=== PATIENT | female | born 1965 | race Caucasian/White ===

== ENCOUNTER → 2018-01-24 | Outpatient (CLI) | payer OTHER | END | disposition home or self-care (01) | LOC: KCIC MRI 12:16 | DX: S83.241D Other tear of medial meniscus, current injury, right knee, subsequent encounter (principal); M94.261 Chondromalacia, right knee; X58.XXXD Exposure to other specified factors, subsequent encounter | CPT/HCPCS: 73721 ==

== ENCOUNTER 2021-12-07 10:36 | Inpatient (IN) | payer OTHER ==
[~2021-12-07] VITALS: Ht 170.2 cm; Wt 107.0 kg
[~2021-12-07 10:36] MED LIST: ALPR0.5T PO; FLUT1DIS3 IH; FURO-68 PO; HYDR-2761 PO; POTA10TA12 PO; TIOT18CA IH; VENL150C PO
[2021-12-07 10:38] VITALS: BP 119/83
[2021-12-07] MEDS ORDERED: BUDE10.26 PO (11:13)
[2021-12-07 12:38] LABS: BASE EXCESS ABG 8 mmol/L (-3-3); HCO3 ABG 39 mmol/L (21-28); PO2 ABG 88 mmHg (75-108); SAT O2 ABG 96 % (92-99)
[2021-12-07 12:40] LABS: PCO2 ABG 85 mmHg (35-46)
[2021-12-07] MEDS ORDERED: guaiFENesin/CODEINE 100mg/10mg 5 ML LIQUID PO PRN (13:00)
--- NOTE | 2021-12-07 13:26 | HP ---
DATE OF SERVICE: 12/07/2021 ADMIT DATE: 12/07/2021 CHIEF COMPLAINT: Respiratory failure. HISTORY OF PRESENT ILLNESS: The patient is a pleasant 56-year-old female who smokes too much. She presented to [facility] with respiratory failure. Her CO2 level was quite high. They put her on BiPAP and then she somehow left AMA. She went back to the hospital a few hours later after she smoked some more. Now, she has been transferred to our facility where we put her back on BiPAP. She is threatening to leave against medical advice again. PAST MEDICAL HISTORY: Severe tobacco abuse, she was just smoking this morning, chronic pain, depression, anxiety. ALLERGIES: SULFA, CEPHALEXIN, PENICILLIN, AND PROMETHAZINE. FAMILY HISTORY: COPD. SOCIAL HISTORY: She smokes 2 packs a day. No drink or drugs. MEDICATIONS: Reviewed. She is on Spiriva, hydrocodone, Effexor, Xanax, budesonide, and Advair. REVIEW OF SYSTEMS: GENERAL: No history of weight change, weakness or fevers. SKIN: No bruising, hair changes or rashes. EYES: No blurred, double or loss of vision. NOSE AND THROAT: No history of nosebleeds, hoarseness or sore throat. HEART: No history of palpitations, chest pain or shortness of breath on exertion. LUNGS: She complains of severe shortness of breath and cough. GASTROINTESTINAL: Denies changes in appetite, nausea, vomiting, diarrhea or constipation. GENITOURINARY: No history of frequency, urgency, hesitancy or nocturia. NEUROLOGIC: Denies history of numbness, tingling, tremor or weakness. PSYCHIATRIC: No history of panic, anxiety or depression. ENDOCRINE: No history of heat or cold intolerance, polyuria or polydipsia. EXTREMITIES: Denies muscle weakness, joint pain, pain on walking or stiffness. PHYSICAL EXAMINATION: VITALS: Within normal limits and are stable. GENERAL: No apparent distress. Alert and oriented. HEENT: We just put the BiPAP mask on her. MUSCULOSKELETAL: Well developed, well nourished, good range of motion. ENDOCRINE: No thyromegaly was palpated. LYMPHATICS: No cervical chain or axillary nodes were noted. HEMATOPOIETIC: No bruising. NECK: Supple, no JVD, no thyromegaly was noted. LUNGS: She has bibasilar crackles and decreased breath sounds. HEART: RRR, S1, S2 present. Peripheral pulses intact, no obvious murmurs were noted. ABDOMEN: Soft, nontender. Positive bowel sounds, no organomegaly, normal bowel sounds. EXTREMITIES: Without any cyanosis, clubbing, or edema. Pedal pulses intact, Homans sign is negative. NEUROLOGIC: She is very weak. PSYCHIATRIC: She is anxious and depressed. SKIN: No ulcerations or rashes, good skin turgor, no jaundice. VASCULAR: Good capillary refill, neurovascular bundle appears to be intact. LABORATORY DATA: Pending other than an ABG, which we just got which shows a pH of 7.28, pCO2 85, pO2 88 with bicarbonate of 39, O2 sat of 96%, that was on 50% on the BiPAP. ASSESSMENT AND PLAN: Fulminant respiratory failure, suspect end-stage chronic obstructive pulmonary disease. We will give her empiric IV antibiotics, IV steroids, DuoNebs, BiPAP, home meds. Deep venous thrombosis prophylaxis. Full code. Consult Pulmonary. Prognosis extremely guarded at best. I told her to quit smoking. YELITZA/HARDY DR: YELITZA/lissett TID: [id number]
[2021-12-07] MEDS: HYDROcodone/APAP 5/325MG 1 TAB TABLET PO SCH ×2 (14:00→20:39)
[2021-12-07 14:18] LABS: ALBUMIN/GLOBULIN RATIO 0.7 (1.0-1.7); CALCIUM 8.6 mg/dL (8.5-10.1); CREATININE 0.6 mg/dL (0.6-1.0); GFR 102.7; POTASSIUM 3.8 mmol/L (3.5-5.1); TOTAL BILIRUBIN 0.3 mg/dL (0.2-1.0); TOTAL PROTEIN 7.1 g/dL (6.4-8.2)
[2021-12-07] MEDS: ALPRAZolam 0.5 MG TABLET PO SCH ×2 (14:30→20:38)
[2021-12-07] MEDS: methylPREDNISolone SOD SUCC PF 40 MG/ML VIAL. IV SCH ×2 (14:30→20:39)
[2021-12-07] MEDS: VENLAFAXINE 50 MG TABLET. PO SCH ×2 (14:30→20:39)
[2021-12-07 15:00] VITALS: BP 152/85
[2021-12-07] MEDS: IPRATRPIUM/ALBUTEROL 0.5/2.5MG 3 ML NEBU. NEB SCH ×2 (15:23→21:30)
[2021-12-07] MEDS ORDERED: IPRATRPIUM/ALBUTEROL 0.5/2.5MG 3 ML NEBU. NEB SCH (16:00)
[2021-12-07 19:00] VITALS: BP 146/88
[2021-12-07] MEDS: LACTOBACILLUS RHAMNOSUS GG 1 CAPSULE. PO SCH (20:39)
[2021-12-07] MEDS ORDERED: NON FORMULARY ITEM (Fluticasone/Salmeterol (Advair 250-50 Diskus) 1 PUFF) IH SCH (21:00)
[2021-12-07] MEDS ORDERED: FORMOTEROL FUMARATE PO SCH (21:00)
[2021-12-07] MEDS ORDERED: BUDESONIDE PO SCH (21:00)
[2021-12-07] MEDS ORDERED: [UNRECOGNIZED DRUG - OTHER] PO SCH (21:00)
[2021-12-07] MEDS: BUDESONIDE 0.5 MG/2 ML NEBU. NEB SCH (21:30)
[2021-12-07 22:13] VITALS: BP 121/68
[2021-12-08 02:24] VITALS: BP 143/92
[2021-12-08 05:35] LABS: CALCIUM 8.8 mg/dL (8.5-10.1); CREATININE 0.6 mg/dL (0.6-1.0); GFR 102.7; POTASSIUM 4.5 mmol/L (3.5-5.1)
[2021-12-08 07:00] VITALS: BP 143/68
[2021-12-08] MEDS: IPRATRPIUM/ALBUTEROL 0.5/2.5MG 3 ML NEBU. NEB SCH ×4 (07:26→20:04)
[2021-12-08] MEDS: BUDESONIDE 0.5 MG/2 ML NEBU. NEB SCH ×2 (07:26→20:04)
[2021-12-08] MEDS: VENLAFAXINE 50 MG TABLET. PO SCH ×3 (07:41→20:14)
[2021-12-08] MEDS: ALPRAZolam 0.5 MG TABLET PO SCH ×2 (07:41→14:00)
[2021-12-08] MEDS: HYDROcodone/APAP 5/325MG 1 TAB TABLET PO SCH ×2 (07:41→14:00)
[2021-12-08] MEDS: LACTOBACILLUS RHAMNOSUS GG 1 CAPSULE. PO SCH ×2 (07:41→20:14)
[2021-12-08] MEDS: methylPREDNISolone SOD SUCC PF 40 MG/ML VIAL. IV SCH ×2 (07:42→20:14)
[2021-12-08] MEDS ORDERED: NON FORMULARY ITEM (Tiotropium Bromide (Spiriva) 1 CAP) IH SCH (09:00)
[2021-12-08 10:25] VITALS: BP 135/60
--- NOTE | 2021-12-08 10:33 | CONS ---
DATE OF CONSULTATION: 12/08/2021 PULMONARY CONSULTATION ATTENDING PHYSICIAN: Wyatt Garibay DO REASON FOR CONSULTATION: Respiratory failure. HISTORY OF PRESENT ILLNESS: The patient is a 56-year-old morbidly obese female with a BMI of 37.6. She has 40 years of tobacco use. She came into the hospital with cough and shortness of breath. She states she had COVID in last week of October. She is not vaccinated with COVID. She continues to smoke 1 pack per day. She also had generalized leg edema and swelling of her body. The patient was seen in the Emergency Room and hospitalized for further evaluation. She is not on home oxygen. ABGs initially showed a pH of 7.28, pCO2 of 85 and a pO2 of 88 with a bicarbonate 39 on 50% BiPAP. She is currently off the BiPAP and currently on nasal cannula. I have been asked to see her for further evaluation. No nausea, vomiting, no diarrhea, no dysuria. PAST MEDICAL HISTORY: Suspect severe COPD. A pack a day for 40 years and still smokes cigarettes. History of chronic pain, depression, anxiety. PAST SURGICAL HISTORY: No recent surgery. ALLERGIES: SULFA, CEPHALEXIN, PENICILLIN, AND PROMETHAZINE. FAMILY HISTORY: COPD. SOCIAL HISTORY: Smokes 1 pack a day and is doing it for 40 years. MEDICATIONS: All reviewed as listed in the MRAD including DuoNebs, Solu-Medrol and Levaquin. REVIEW OF SYSTEMS: Twelve-point review of system obtained. Pertinent positives discussed in my present illness, otherwise noncontributory. All systems that were negative were reviewed as well. PHYSICAL EXAMINATION: VITAL SIGNS: Reviewed. Pulse ox 94% on 4 liters. Blood pressure is stable. Afebrile. NECK: Supple. LUNGS: With diminished breath sounds. No wheezing. CARDIOVASCULAR: With a regular rate. ABDOMEN: Soft, nontender, obese. EXTREMITIES: With 1+ pitting edema. LABORATORY DATA: Labs are reviewed. ABGs discussed in my history of present illness. BUN 11, creatinine 0.6. Bicarbonate is 45. IMPRESSION: 1. Acute on chronic hypoxic and hypercapnic respiratory failure secondary to multifactorial etiologies including a combination of acute exacerbation of chronic obstructive pulmonary disease, acute bronchitis and acute on chronic cor pulmonale. 2. Underlying suspected severe chronic obstructive pulmonary disease with chronic hypercapnia. In addition, she likely has component of obesity hypoventilation syndrome. 3. COVID-19 infection in October of this year. Recovered. Not on home oxygen. Some of the x-ray abnormalities could be from residual COVID pneumonia. 4. Underlying morbid obesity. RECOMMENDATIONS: 1. The patient is off the BiPAP. Clinically, doing better. 2. We will follow on her ABGs. 3. Smoking cessation counseling provided. 4. Continue DuoNebs. 5. Continue empiric antibiotic. 6. IV Solu-Medrol with gradual taper. 7. Continue Pulmicort. 8. Weight loss is strongly emphasized. 9. We will discuss with RN. We will follow along with you. Could be discharged in the next 24 hours. Give IV Lasix. ANA PAULA DR: Rangel TID: [id number] [facility] [place] [facility]
[2021-12-08] MEDS ORDERED: FUROSEMIDE 40 MG/4 ML VIAL. IVP ONE (11:00)
--- NOTE | 2021-12-08 11:28 | PDOC ---
[employer] PROGRESS NOTE Date of Service DOS: DATE: 12/08/21 TIME: 11:24 Chief Complaint Chief Complaint ContinuedRespiratory failure End-stage COPD Continued tobacco abuse although she states she quit yesterday Chronic pain Depression Anxiety History of Present Illness History of Present Illness 12/08/2021 Patient seen and examined She is lying on her left side resting with no apparent distress Refuses to wear BiPAP and refused the ABG by RT Called the RT a B____h ! Vitals/I&O Vitals/I&O: Vital Signs Date Time Temp Pulse Resp B/P (MAP) Pulse Ox O2 Delivery O2 Flow Rate FiO2 12/08/21 10:25 97.1 100 20 135/60 (85) 96 Nasal Cannula 4.0 97.1 I & O 12/07/21 12/07/21 12/08/21 15:00 23:00 07:00 Intake Total 0 ml 100 ml Output Total 250 ml Balance 0 ml 100 ml -250 ml Physical Exam General: No acute distress Heart: Regular rate Lungs: Crackles Abdomen: Normal bowel sounds Extremities: No clubbing Skin: No rashes Labs Labs: Laboratory Tests Test 12/07/21 12:40 12/07/21 13:40 12/08/21 04:15 O2 Saturation 96 % (92-99) Arterial Blood pH 7.28 (7.35-7.45) Arterial Blood pCO2 at Patient Temp 85 mmHg (35-46) Arterial Blood pO2 at Patient Temp 88 mmHg (75-108) Arterial Blood HCO3 39 mmol/L (21-28) Arterial Blood Base Excess 8 mmol/L (-3-3) FiO2 50% bipap Sodium Level 143 mmol/L (136-145) 145 mmol/L (136-145) Potassium Level 3.8 mmol/L (3.5-5.1) 4.5 mmol/L (3.5-5.1) Chloride Level 98 mmol/L (98-107) 98 mmol/L (98-107) Carbon Dioxide Level 40 mmol/L (21-32) 45 mmol/L (21-32) Anion Gap 5 (6-14) 2 (6-14) Blood Urea Nitrogen 7 mg/dL (7-20) 11 mg/dL (7-20) Creatinine 0.6 mg/dL (0.6-1.0) 0.6 mg/dL (0.6-1.0) Estimated GFR (Cockcroft-Gault) 102.7 102.7 BUN/Creatinine Ratio 12 (6-20) Glucose Level 122 mg/dL (70-99) 105 mg/dL (70-99) Calcium Level 8.6 mg/dL (8.5-10.1) 8.8 mg/dL (8.5-10.1) Total Bilirubin 0.3 mg/dL (0.2-1.0) Aspartate Amino Transf (AST/SGOT) 19 U/L (15-37) Alanine Aminotransferase (ALT/SGPT) 23 U/L (14-59) Alkaline Phosphatase 71 U/L (46-116) Total Protein 7.1 g/dL (6.4-8.2) Albumin 3.0 g/dL (3.4-5.0) Albumin/Globulin Ratio 0.7 (1.0-1.7) Assessment and Plan Assessmemt and Plan ContinuedRespiratory failure End-stage COPD Continued tobacco abuse although she states she quit yesterday Chronic pain Depression Anxiety Plan Continue steroids As needed BiPAP Trend ABGs Home meds DVT prophylaxis Full code She probably needs hospice? Comment Review of Relevant I have reviewed the following items eliane (where applicable) has been applied. Medications: Current Medications Medications (Trade) Dose Ordered Sig/Lobito Route PRN Reason Start Time Stop Time Status Last Admin Dose Admin Methylprednisolone Sodium Succinate (SOLU-Medrol 40MG VIAL) 40 mg BID IV 12/07/21 14:00 12/08/21 07:42 Levofloxacin/ Dextrose 100 ml @ 100 mls/hr Q24H IV 12/07/21 13:00 12/07/21 14:28 Albuterol/ Ipratropium (Duoneb) 3 ml RTQID NEB 12/07/21 16:00 12/08/21 07:26 Alprazolam (Xanax) 0.5 mg TID PO 12/07/21 14:00 12/08/21 07:41 Acetaminophen/ Hydrocodone Bitart (Lortab 5/325) 1 tab TID PO 12/07/21 14:00 12/08/21 07:41 Venlafaxine HCl (Effexor) 100 mg TID PO 12/07/21 14:00 12/08/21 07:41 Budesonide (Pulmicort) 0.5 mg RTBID NEB 12/07/21 20:00 12/08/21 07:26 Lactobacillus Rhamnosus (Culturelle) 1 cap BID PO 12/07/21 21:00 12/08/21 07:41 Justifications for Admission Other Justification TOBI RODRIGUEZ III DO Dec 08, 2021 11:28
[2021-12-08] MEDS ORDERED: HYDROcodone/APAP 5/325MG 1 TAB TABLET PO PRN (14:15)
--- NOTE | 2021-12-08 14:38 | NUR ---
SS following for discharge planning. SS reviewed pt chart and discussed with pt RN. Pt is from home and is currently requiring oxygen at four liters nasal canula. Pt has no home oxygen. Pulmonology following. Pt on IV Solu-Medrol and IV Levaquin. SS will continue to follow for discharge planning.
[2021-12-08] MEDS ORDERED: NICOTINE 21MG PATCH. TD PRN (14:45)
[2021-12-08 14:57] VITALS: BP 146/89
[2021-12-08] MEDS: NICOTINE 21MG PATCH. TD SCH (15:00)
[2021-12-08 19:24] VITALS: BP 136/82
[2021-12-08] MEDS: ENOXAPARIN 40 MG/0.4 ML SYRINGE. SQ SCH (20:14)
[2021-12-08] MEDS: ALPRAZolam 0.5 MG TABLET PO PRN (20:15)
[2021-12-08 22:41] VITALS: BP 162/86
[2021-12-09] VITALS (7 sets, daily range): BP systolic 141–184; BP diastolic 74–92
[2021-12-09 05:11] LABS: BASO % 0 % (0-3); EOS % 0 % (0-3); HEMATOCRIT 43.1 % (36.0-47.0); HEMOGLOBIN 13.9 g/dL (12.0-15.5); LYMPH # 0.8 x10^3/uL (1.0-4.8); LYMPH % 12 % (24-48); MEAN CORPUSCULAR HEMOGLOBIN 30 pg (25-35); MEAN CORPUSCULAR HGB CONC 32 g/dL (31-37); MEAN CORPUSCULAR VOLUME 93 fL (79-100); MONO # 0.3 x10^3/uL (0.0-1.1); MONO % 5 % (0-9); NEUT # 5.3 x10^3/uL (1.8-7.7); NEUT % 83 % (31-73); PLATELET COUNT 236 x10^3/uL (140-400); RED BLOOD COUNT 4.64 x10^6/uL (3.50-5.40); WHITE BLOOD COUNT 6.4 x10^3/uL (4.0-11.0)
[2021-12-09 05:30] LABS: BLOOD UREA NITROGEN 19 mg/dL (7-20); CALCIUM 8.9 mg/dL (8.5-10.1); CHLORIDE 96 mmol/L (98-107); CREATININE 0.7 mg/dL (0.6-1.0); GFR 85.9; GLUCOSE 116 mg/dL (70-99); POTASSIUM 4.3 mmol/L (3.5-5.1); SODIUM 145 mmol/L (136-145)
[2021-12-09 05:41] LABS: CARBON DIOXIDE > 45 mmol/L (21-32)
[2021-12-09] MEDS: VENLAFAXINE 50 MG TABLET. PO SCH ×3 (08:08→20:51)
[2021-12-09] MEDS: methylPREDNISolone SOD SUCC PF 40 MG/ML VIAL. IV SCH ×2 (08:08→20:51)
[2021-12-09] MEDS: LACTOBACILLUS RHAMNOSUS GG 1 CAPSULE. PO SCH ×2 (08:08→20:52)
[2021-12-09] MEDS: NICOTINE 21MG PATCH. TD SCH (08:08)
[2021-12-09] MEDS: IPRATRPIUM/ALBUTEROL 0.5/2.5MG 3 ML NEBU. NEB SCH ×4 (08:38→21:00)
[2021-12-09] MEDS: BUDESONIDE 0.5 MG/2 ML NEBU. NEB SCH ×2 (08:38→21:00)
--- NOTE | 2021-12-09 10:42 | PDOC ---
[employer] PROGRESS NOTE Date of Service DOS: DATE: 12/09/21 TIME: 10:41 Chief Complaint Chief Complaint ContinuedRespiratory failure End-stage COPD Continued tobacco abuse although she states she quit yesterday Chronic pain Depression Anxiety History of Present Illness History of Present Illness 12/09/2021 Patient up in the shower Discussed with RN Discussed with case management Chart reviewed 12/08/2021 Patient seen and examined She is lying on her left side resting with no apparent distress Refuses to wear BiPAP and refused the ABG by RT Called the RT a B____h ! Vitals/I&O Vitals/I&O: Vital Signs Date Time Temp Pulse Resp B/P (MAP) Pulse Ox O2 Delivery O2 Flow Rate FiO2 12/09/21 10:32 22 98 Nasal Cannula 12/09/21 10:24 98.0 97 168/81 (110) 4.0 98.0 I & O 12/08/21 12/08/21 12/09/21 15:00 23:00 07:00 Intake Total 510 ml 510 ml 360 ml Output Total 2450 ml Balance 510 ml -1940 ml 360 ml Physical Exam General: No acute distress Heart: Regular rate Lungs: Crackles Abdomen: Normal bowel sounds Extremities: No clubbing Skin: No rashes Labs Labs: Laboratory Tests Test 12/09/21 04:15 White Blood Count 6.4 x10^3/uL (4.0-11.0) Red Blood Count 4.64 x10^6/uL (3.50-5.40) Hemoglobin 13.9 g/dL (12.0-15.5) Hematocrit 43.1 % (36.0-47.0) Mean Corpuscular Volume 93 fL (79-100) Mean Corpuscular Hemoglobin 30 pg (25-35) Mean Corpuscular Hemoglobin Concent 32 g/dL (31-37) Red Cell Distribution Width 17.0 % (11.5-14.5) Platelet Count 236 x10^3/uL (140-400) Neutrophils (%) (Auto) 83 % (31-73) Lymphocytes (%) (Auto) 12 % (24-48) Monocytes (%) (Auto) 5 % (0-9) Eosinophils (%) (Auto) 0 % (0-3) Basophils (%) (Auto) 0 % (0-3) Neutrophils # (Auto) 5.3 x10^3/uL (1.8-7.7) Lymphocytes # (Auto) 0.8 x10^3/uL (1.0-4.8) Monocytes # (Auto) 0.3 x10^3/uL (0.0-1.1) Eosinophils # (Auto) 0.0 x10^3/uL (0.0-0.7) Basophils # (Auto) 0.0 x10^3/uL (0.0-0.2) Sodium Level 145 mmol/L (136-145) Potassium Level 4.3 mmol/L (3.5-5.1) Chloride Level 96 mmol/L (98-107) Carbon Dioxide Level > 45 mmol/L (21-32) Anion Gap (6-14) Blood Urea Nitrogen 19 mg/dL (7-20) Creatinine 0.7 mg/dL (0.6-1.0) Estimated GFR (Cockcroft-Gault) 85.9 Glucose Level 116 mg/dL (70-99) Calcium Level 8.9 mg/dL (8.5-10.1) Assessment and Plan Assessmemt and Plan ContinuedRespiratory failure End-stage COPD Continued tobacco abuse although she states she quit yesterday Chronic pain Depression Anxiety Plan Continue IV steroids As needed BiPAP Continue IV antibiotic Trend ABGs Home meds DVT prophylaxis Full code We will hope to change to p.o. steroids and p.o. antibiotics tomorrow morning and discharge then Comment Review of Relevant I have reviewed the following items eliane (where applicable) has been applied. Medications: Current Medications Medications (Trade) Dose Ordered Sig/Lobito Route PRN Reason Start Time Stop Time Status Last Admin Dose Admin Furosemide (Lasix) 40 mg 1X ONCE IVP 12/08/21 11:00 12/08/21 11:01 DC 12/08/21 11:40 Alprazolam (Xanax) 0.5 mg PRN TID PRN PO ANXIETY / AGITATION 12/08/21 14:15 12/08/21 20:15 Acetaminophen/ Hydrocodone Bitart (Lortab 5/325) 1 tab PRN TID PRN PO PAIN 12/08/21 14:15 12/09/21 10:02 Enoxaparin Sodium (Lovenox 40mg Syringe) 40 mg Q24H SQ 12/08/21 21:00 12/08/21 20:14 Justifications for Admission Other Justification TOBI RODRIGUEZ III DO Dec 09, 2021 10:42
--- NOTE | 2021-12-09 11:00 | PDOC ---
PULMONARY PROGRESS NOTES DATE: 12/09/21 TIME: 10:57 Subjective Patient feels better. Remains on nasal cannula. Used BiPAP last night. Vitals Vital Signs Date Time Temp Pulse Resp B/P (MAP) Pulse Ox O2 Delivery O2 Flow Rate FiO2 12/09/21 10:32 22 98 Nasal Cannula 12/09/21 10:24 98.0 97 168/81 (110) 4.0 98.0 General: Alert, No acute distress Lungs: Clear Cardiovascular: S1 Abdomen: Soft Neuro Exam: Alert Extremities: Other (1+ pitting edema bilaterally) Labs Laboratory Tests Test 12/07/21 12:40 12/07/21 13:40 12/08/21 04:15 12/09/21 04:15 O2 Saturation 96 % (92-99) Arterial Blood pH 7.28 (7.35-7.45) Arterial Blood pCO2 at Patient Temp 85 mmHg (35-46) Arterial Blood pO2 at Patient Temp 88 mmHg (75-108) Arterial Blood HCO3 39 mmol/L (21-28) Arterial Blood Base Excess 8 mmol/L (-3-3) FiO2 50% bipap Sodium Level 143 mmol/L (136-145) 145 mmol/L (136-145) 145 mmol/L (136-145) Potassium Level 3.8 mmol/L (3.5-5.1) 4.5 mmol/L (3.5-5.1) 4.3 mmol/L (3.5-5.1) Chloride Level 98 mmol/L (98-107) 98 mmol/L (98-107) 96 mmol/L (98-107) Carbon Dioxide Level 40 mmol/L (21-32) 45 mmol/L (21-32) > 45 mmol/L (21-32) Anion Gap 5 (6-14) 2 (6-14) (6-14) Blood Urea Nitrogen 7 mg/dL (7-20) 11 mg/dL (7-20) 19 mg/dL (7-20) Creatinine 0.6 mg/dL (0.6-1.0) 0.6 mg/dL (0.6-1.0) 0.7 mg/dL (0.6-1.0) Estimated GFR (Cockcroft-Gault) 102.7 102.7 85.9 BUN/Creatinine Ratio 12 (6-20) Glucose Level 122 mg/dL (70-99) 105 mg/dL (70-99) 116 mg/dL (70-99) Calcium Level 8.6 mg/dL (8.5-10.1) 8.8 mg/dL (8.5-10.1) 8.9 mg/dL (8.5-10.1) Total Bilirubin 0.3 mg/dL (0.2-1.0) Aspartate Amino Transf (AST/SGOT) 19 U/L (15-37) Alanine Aminotransferase (ALT/SGPT) 23 U/L (14-59) Alkaline Phosphatase 71 U/L (46-116) Total Protein 7.1 g/dL (6.4-8.2) Albumin 3.0 g/dL (3.4-5.0) Albumin/Globulin Ratio 0.7 (1.0-1.7) White Blood Count 6.4 x10^3/uL (4.0-11.0) Red Blood Count 4.64 x10^6/uL (3.50-5.40) Hemoglobin 13.9 g/dL (12.0-15.5) Hematocrit 43.1 % (36.0-47.0) Mean Corpuscular Volume 93 fL (79-100) Mean Corpuscular Hemoglobin 30 pg (25-35) Mean Corpuscular Hemoglobin Concent 32 g/dL (31-37) Red Cell Distribution Width 17.0 % (11.5-14.5) Platelet Count 236 x10^3/uL (140-400) Neutrophils (%) (Auto) 83 % (31-73) Lymphocytes (%) (Auto) 12 % (24-48) Monocytes (%) (Auto) 5 % (0-9) Eosinophils (%) (Auto) 0 % (0-3) Basophils (%) (Auto) 0 % (0-3) Neutrophils # (Auto) 5.3 x10^3/uL (1.8-7.7) Lymphocytes # (Auto) 0.8 x10^3/uL (1.0-4.8) Monocytes # (Auto) 0.3 x10^3/uL (0.0-1.1) Eosinophils # (Auto) 0.0 x10^3/uL (0.0-0.7) Basophils # (Auto) 0.0 x10^3/uL (0.0-0.2) Laboratory Tests Test 12/09/21 04:15 White Blood Count 6.4 x10^3/uL (4.0-11.0) Red Blood Count 4.64 x10^6/uL (3.50-5.40) Hemoglobin 13.9 g/dL (12.0-15.5) Hematocrit 43.1 % (36.0-47.0) Mean Corpuscular Volume 93 fL (79-100) Mean Corpuscular Hemoglobin 30 pg (25-35) Mean Corpuscular Hemoglobin Concent 32 g/dL (31-37) Red Cell Distribution Width 17.0 % (11.5-14.5) Platelet Count 236 x10^3/uL (140-400) Neutrophils (%) (Auto) 83 % (31-73) Lymphocytes (%) (Auto) 12 % (24-48) Monocytes (%) (Auto) 5 % (0-9) Eosinophils (%) (Auto) 0 % (0-3) Basophils (%) (Auto) 0 % (0-3) Neutrophils # (Auto) 5.3 x10^3/uL (1.8-7.7) Lymphocytes # (Auto) 0.8 x10^3/uL (1.0-4.8) Monocytes # (Auto) 0.3 x10^3/uL (0.0-1.1) Eosinophils # (Auto) 0.0 x10^3/uL (0.0-0.7) Basophils # (Auto) 0.0 x10^3/uL (0.0-0.2) Sodium Level 145 mmol/L (136-145) Potassium Level 4.3 mmol/L (3.5-5.1) Chloride Level 96 mmol/L (98-107) Carbon Dioxide Level > 45 mmol/L (21-32) Anion Gap (6-14) Blood Urea Nitrogen 19 mg/dL (7-20) Creatinine 0.7 mg/dL (0.6-1.0) Estimated GFR (Cockcroft-Gault) 85.9 Glucose Level 116 mg/dL (70-99) Calcium Level 8.9 mg/dL (8.5-10.1) Medications Active Scripts Medications Dose Route/Sig Max Daily Dose Days Date Category Budesonide-Formoterol 160-4.5 (Budesonide/Formoterol Fumarate) 10.2 Gm Hfa.aer.ad 2 Puff PO BID 12/07/21 Reported Effexor Xr (Venlafaxine Hcl) 150 Mg Cap.er.24h 300 Mg PO DAILY 05/31/15 Reported Hydrocodone-Apap 5-325 (Hydrocodone Bit/Acetaminophen) 1 Each Tablet 1 Tab PO TID PRN PRN 05/31/15 Reported Xanax (Alprazolam) 0.5 Mg Tablet 1 Tab PO TID PRN PRN 05/31/15 Reported Advair 250-50 Diskus (Fluticasone/Salmeterol) 1 Each Disk.w.dev 1 Puff IH BID 05/31/15 Reported Spiriva (Tiotropium Eitzen) 18 Mcg Cap.w.dev 1 Cap IH DAILY 05/31/15 Reported Impression . 1. Acute on chronic hypoxic and hypercapnic respiratory failure secondary to multifactorial etiologies including a combination of acute exacerbation of chronic obstructive pulmonary disease, acute bronchitis and acute on chronic cor pulmonale. 2. Underlying suspected severe chronic obstructive pulmonary disease with chronic hypercapnia. In addition, she likely has component of obesity hypoventilation syndrome. 3. COVID-19 infection in October of this year. Recovered. Not on home oxygen. Some of the x-ray abnormalities could be from residual COVID pneumonia. 4. Underlying morbid obesity. Plan . 1. The patient is off the BiPAP. Clinically, doing better. 2. We will follow on her ABGs today. 3. Smoking cessation counseling provided. 4. Continue DuoNebs. 5. Continue empiric antibiotic. 6. IV Solu-Medrol with gradual taper. 7. Continue Pulmicort. 8. Weight loss is strongly emphasized. 9. Diuresis. Likely discharge in the next 24 hours. LEE CASTRO MD Dec 09, 2021 11:00
[2021-12-09] MEDS ORDERED: FUROSEMIDE 40 MG/4 ML VIAL. IVP ONE (11:15)
[2021-12-09 11:23] LABS: BASE EXCESS ABG 15 mmol/L (-3-3); HCO3 ABG 44 mmol/L (21-28); PO2 ABG 61 mmHg (75-108); SAT O2 ABG 90 % (92-99)
[2021-12-09 11:29] LABS: PCO2 ABG 74 mmHg (35-46)
--- NOTE | 2021-12-09 13:04 | NUR ---
SS following up with discharge planning. SS reviewed pt chart and discussed with pt RN. Pt is currently requiring oxygen at three to four liters nasal canula. Pt has no home oxygen. Pulmonology following. Pt on IV Solu-Medrol and IV Levaquin. Probable need for six minute walk prior to discharge. SS will continue to follow for discharge planning.
[2021-12-09] MEDS: ENOXAPARIN 40 MG/0.4 ML SYRINGE. SQ SCH (20:51)
[2021-12-09] MEDS: ALPRAZolam 0.5 MG TABLET PO PRN (20:52)
--- NOTE | 2021-12-09 22:04 | NUR ---
PT ON BIPAP FOR ONLY AN HOUR. SAID SHE CANT DO IT, WILL ASK AGAIN LATER. LCR
--- NOTE | 2021-12-10 00:36 | NUR ---
PT ADAMANTLY REFUSING TO WEAR BIPAP. STATES THAT THE MASK MERLOS.
--- NOTE | 2021-12-10 01:00 | NUR ---
pt wore bipap x 1 hour. states it lopez her nose and drys out her mouth. lcrn
[2021-12-10 02:24] VITALS: BP 137/92
[2021-12-10 03:26] LABS: BASO % 0 % (0-3); EOS % 0 % (0-3); HEMOGLOBIN 14.3 g/dL (12.0-15.5); LYMPH # 0.6 x10^3/uL (1.0-4.8); LYMPH % 11 % (24-48); MEAN CORPUSCULAR HEMOGLOBIN 30 pg (25-35); MEAN CORPUSCULAR HGB CONC 33 g/dL (31-37); MEAN CORPUSCULAR VOLUME 92 fL (79-100); MONO # 0.2 x10^3/uL (0.0-1.1); MONO % 4 % (0-9); NEUT # 4.2 x10^3/uL (1.8-7.7); NEUT % 85 % (31-73); PLATELET COUNT 221 x10^3/uL (140-400); RED BLOOD COUNT 4.77 x10^6/uL (3.50-5.40); RED CELL DISTRIBUTION WIDTH 17.8 % (11.5-14.5); WHITE BLOOD COUNT 4.9 x10^3/uL (4.0-11.0)
[2021-12-10 03:48] LABS: BLOOD UREA NITROGEN 19 mg/dL (7-20); CALCIUM 9.2 mg/dL (8.5-10.1); CHLORIDE 97 mmol/L (98-107); CREATININE 0.8 mg/dL (0.6-1.0); GFR 73.7; GLUCOSE 136 mg/dL (70-99); POTASSIUM 4.8 mmol/L (3.5-5.1); SODIUM 144 mmol/L (136-145)
[2021-12-10 03:49] LABS: CARBON DIOXIDE > 45 mmol/L (21-32)
[2021-12-10 07:00] VITALS: BP 154/77
[2021-12-10] MEDS: IPRATRPIUM/ALBUTEROL 0.5/2.5MG 3 ML NEBU. NEB SCH ×2 (07:41→11:23)
[2021-12-10] MEDS: BUDESONIDE 0.5 MG/2 ML NEBU. NEB SCH (07:41)
--- NOTE | 2021-12-10 08:32 | PDOC ---
[employer] PROGRESS NOTE Date of Service DOS: DATE: 12/10/21 TIME: 08:30 Chief Complaint Chief Complaint ContinuedRespiratory failure End-stage COPD Continued tobacco abuse although she states she quit yesterday Chronic pain Depression Anxiety History of Present Illness History of Present Illness 12/10/2021 Patient seen and examined She seems to have made a remarkable recovery She is sitting up smiling talking eating able to walk to the bathroom States she is done smoking cigarettes Wants to go home We will discharge on p.o. steroids antibiotics oxygen beta agonist 12/09/2021 Patient up in the shower Discussed with RN Discussed with case management Chart reviewed 12/08/2021 Patient seen and examined She is lying on her left side resting with no apparent distress Refuses to wear BiPAP and refused the ABG by RT Called the RT a B____h ! Vitals/I&O Vitals/I&O: Vital Signs Date Time Temp Pulse Resp B/P (MAP) Pulse Ox O2 Delivery O2 Flow Rate FiO2 12/10/21 07:43 95 Nasal Cannula 3.0 12/10/21 07:00 97.7 86 19 154/77 (102) 97.7 I & O 12/09/21 12/09/21 12/10/21 15:00 23:00 07:00 Intake Total 680 ml 440 ml 1200 ml Output Total 2000 ml 1200 ml 1600 ml Balance -1320 ml -760 ml -400 ml Physical Exam General: Alert, Oriented X3, Cooperative, No acute distress Heart: Regular rate Lungs: Clear Abdomen: Normal bowel sounds Extremities: No clubbing Skin: No rashes Labs Labs: Laboratory Tests Test 12/10/21 02:40 White Blood Count 4.9 x10^3/uL (4.0-11.0) Red Blood Count 4.77 x10^6/uL (3.50-5.40) Hemoglobin 14.3 g/dL (12.0-15.5) Hematocrit 44.0 % (36.0-47.0) Mean Corpuscular Volume 92 fL (79-100) Mean Corpuscular Hemoglobin 30 pg (25-35) Mean Corpuscular Hemoglobin Concent 33 g/dL (31-37) Red Cell Distribution Width 17.8 % (11.5-14.5) Platelet Count 221 x10^3/uL (140-400) Neutrophils (%) (Auto) 85 % (31-73) Lymphocytes (%) (Auto) 11 % (24-48) Monocytes (%) (Auto) 4 % (0-9) Eosinophils (%) (Auto) 0 % (0-3) Basophils (%) (Auto) 0 % (0-3) Neutrophils # (Auto) 4.2 x10^3/uL (1.8-7.7) Lymphocytes # (Auto) 0.6 x10^3/uL (1.0-4.8) Monocytes # (Auto) 0.2 x10^3/uL (0.0-1.1) Eosinophils # (Auto) 0.0 x10^3/uL (0.0-0.7) Basophils # (Auto) 0.0 x10^3/uL (0.0-0.2) Sodium Level 144 mmol/L (136-145) Potassium Level 4.8 mmol/L (3.5-5.1) Chloride Level 97 mmol/L (98-107) Carbon Dioxide Level > 45 mmol/L (21-32) Anion Gap (6-14) Blood Urea Nitrogen 19 mg/dL (7-20) Creatinine 0.8 mg/dL (0.6-1.0) Estimated GFR (Cockcroft-Gault) 73.7 Glucose Level 136 mg/dL (70-99) Calcium Level 9.2 mg/dL (8.5-10.1) Assessment and Plan Assessmemt and Plan ContinuedRespiratory failure End-stage COPD Continued tobacco abuse although she states she quit yesterday Chronic pain Depression Anxiety Plan We will discharge this afternoon with p.o. steroids antibiotics oxygen beta agonist For now continue the following; Continue IV steroids As needed BiPAP Continue IV antibiotic Trend ABGs Home meds DVT prophylaxis Full code Discharge Comment Review of Relevant I have reviewed the following items eliane (where applicable) has been applied. Medications: Current Medications Medications (Trade) Dose Ordered Sig/Lobito Route PRN Reason Start Time Stop Time Status Last Admin Dose Admin Furosemide (Lasix) 40 mg 1X ONCE IVP 12/09/21 11:15 12/09/21 11:16 DC 12/09/21 11:17 Justifications for Admission Other Justification TOBI RODRIGUEZ III DO Dec 10, 2021 08:32
[2021-12-10] MEDS ORDERED: LEVO500T9 PO (08:35)
[2021-12-10] MEDS ORDERED: ALBU2.5V8 IH (08:35)
[2021-12-10] MEDS ORDERED: METH4TAB2 PO (08:35)
--- NOTE | 2021-12-10 08:35 | SNU/HH DC ---
DISCHARGE WITH HOME HEALTH DISCHARGE INFORMATION: Condition on Discharge: Stable CODE STATUS: Code Status: Full HOME HEALTH: Face to Face: I certify this patient is under my care and that I, or a nurse practitioner or physician's product development assistant working with me, had a face to face encounter that meets the physician face to face encounter requirements with this patient on []. Medical Complications: COPD Intermediate For: Assess Cardiopulm Status RN For Eval/Treatment: Yes Physical Therapy For: Evalulation/Treatment Occupational Therapy For: Evaluation/Treatment Home Health Aide For: Self-care SUSTAINABILITY COACH For: Community Resources Pt Meets Homebound Status: Unsteady balance w/ amb, POST DISCHARGE ORDERS: DIET AFTER DISCHARGE: Cardiac CERTIFICATION STATEMENT: Certification Statement: Certification Statement: Based on the above finding, I certify that this patient is confined to the home and needs intermittent fdc care, physical therapy and/or speech therapy, or continues to need occupational therapy.~ This patient is under my care, and I have initiated the establishment of the plan of care.~ This patient will be followed by myself or a community physician who will periodically review the plan of care. Home Meds Active Scripts Albuterol Sulfate (PROAIR HFA INHALER) 8.5 Gm Hfa.aer.ad, 2 PUFF IH PRN Q4-6HRS PRN for wheezing for 21 Days, #1 INHALER 0 Refills Prov:CASTLE,NIAL K III DO 12/10/21 Levofloxacin (LEVOFLOXACIN) 500 Mg Tablet, 1 TAB PO DAILY for ., #7 TAB Prov:CASTLENIAL K III DO 12/10/21 Methylprednisolone (MEDROL) 4 Mg Tab.ds.pk, 1 PKG PO UD for ., #1 PKG Prov:CASTLE,NIAL K III DO 12/10/21 Reported Medications Budesonide/Formoterol Fumarate (Budesonide-Formoterol 160-4.5) 10.2 Gm Hfa. aer.ad, 2 PUFF PO BID for 12/07/21 Venlafaxine Hcl (EFFEXOR XR) 150 Mg Cap.er.24h, 300 MG PO DAILY, CAP.SR 05/31/15 Hydrocodone Bit/Acetaminophen (HYDROCODONE-APAP 5-325 ) 1 Each Tablet, 1 TAB PO TID PRN PRN for PAIN, #90 TAB 8/28/15 Alprazolam (XANAX) 0.5 Mg Tablet, 1 TAB PO TID PRN PRN for ANXIETY / AGITATION, #90 TAB 05/31/15 Fluticasone/Salmeterol (ADVAIR 250-50 DISKUS) 1 Each Disk.w.dev, 1 PUFF IH BID, #3 INHALER 3 Refills 05/31/15 Tiotropium [place] (SPIRIVA) 18 Mcg Cap.w.dev, 1 CAP IH DAILY, #30 CAP 3 Refills 05/31/15 TOBI RODRIGUEZ III DO Dec 10, 2021 08:35
[2021-12-10] MEDS: methylPREDNISolone SOD SUCC PF 40 MG/ML VIAL. IV SCH (08:39)
[2021-12-10] MEDS: LACTOBACILLUS RHAMNOSUS GG 1 CAPSULE. PO SCH (08:39)
[2021-12-10] MEDS: VENLAFAXINE 50 MG TABLET. PO SCH ×2 (08:39→13:17)
[2021-12-10] MEDS: NICOTINE 21MG PATCH. TD SCH (08:45)
--- NOTE | 2021-12-10 10:22 | PDOC ---
PULMONARY PROGRESS NOTES DATE: 12/10/21 TIME: 10:18 Subjective Patient is resting comfortably on 3 L nasal cannula, reports that she wore BiPAP overnight, denies any increased shortness of breath or cough feeling well today Vitals Vital Signs Date Time Temp Pulse Resp B/P (MAP) Pulse Ox O2 Delivery O2 Flow Rate FiO2 12/10/21 08:00 Nasal Cannula 3.0 12/10/21 07:43 95 12/10/21 07:00 97.7 86 19 154/77 (102) 97.7 ROS: No Nausea, No Chest Pain, No Abdominal Pain, No Increase Cough General: Alert, No acute distress Lungs: Clear Cardiovascular: S1 Abdomen: Soft Neuro Exam: Alert Extremities: Other (1+ pitting edema bilaterally) Skin: Warm, Dry Labs Laboratory Tests Test 12/08/21 11:15 12/09/21 04:15 12/10/21 02:40 O2 Saturation 90 % (92-99) Arterial Blood pH 7.39 (7.35-7.45) Arterial Blood pCO2 at Patient Temp 74 mmHg (35-46) Arterial Blood pO2 at Patient Temp 61 mmHg (75-108) Arterial Blood HCO3 44 mmol/L (21-28) Arterial Blood Base Excess 15 mmol/L (-3-3) FiO2 3 lpm nc White Blood Count 6.4 x10^3/uL (4.0-11.0) 4.9 x10^3/uL (4.0-11.0) Red Blood Count 4.64 x10^6/uL (3.50-5.40) 4.77 x10^6/uL (3.50-5.40) Hemoglobin 13.9 g/dL (12.0-15.5) 14.3 g/dL (12.0-15.5) Hematocrit 43.1 % (36.0-47.0) 44.0 % (36.0-47.0) Mean Corpuscular Volume 93 fL (79-100) 92 fL (79-100) Mean Corpuscular Hemoglobin 30 pg (25-35) 30 pg (25-35) Mean Corpuscular Hemoglobin Concent 32 g/dL (31-37) 33 g/dL (31-37) Red Cell Distribution Width 17.0 % (11.5-14.5) 17.8 % (11.5-14.5) Platelet Count 236 x10^3/uL (140-400) 221 x10^3/uL (140-400) Neutrophils (%) (Auto) 83 % (31-73) 85 % (31-73) Lymphocytes (%) (Auto) 12 % (24-48) 11 % (24-48) Monocytes (%) (Auto) 5 % (0-9) 4 % (0-9) Eosinophils (%) (Auto) 0 % (0-3) 0 % (0-3) Basophils (%) (Auto) 0 % (0-3) 0 % (0-3) Neutrophils # (Auto) 5.3 x10^3/uL (1.8-7.7) 4.2 x10^3/uL (1.8-7.7) Lymphocytes # (Auto) 0.8 x10^3/uL (1.0-4.8) 0.6 x10^3/uL (1.0-4.8) Monocytes # (Auto) 0.3 x10^3/uL (0.0-1.1) 0.2 x10^3/uL (0.0-1.1) Eosinophils # (Auto) 0.0 x10^3/uL (0.0-0.7) 0.0 x10^3/uL (0.0-0.7) Basophils # (Auto) 0.0 x10^3/uL (0.0-0.2) 0.0 x10^3/uL (0.0-0.2) Sodium Level 145 mmol/L (136-145) 144 mmol/L (136-145) Potassium Level 4.3 mmol/L (3.5-5.1) 4.8 mmol/L (3.5-5.1) Chloride Level 96 mmol/L (98-107) 97 mmol/L (98-107) Carbon Dioxide Level > 45 mmol/L (21-32) > 45 mmol/L (21-32) Anion Gap (6-14) (6-14) Blood Urea Nitrogen 19 mg/dL (7-20) 19 mg/dL (7-20) Creatinine 0.7 mg/dL (0.6-1.0) 0.8 mg/dL (0.6-1.0) Estimated GFR (Cockcroft-Gault) 85.9 73.7 Glucose Level 116 mg/dL (70-99) 136 mg/dL (70-99) Calcium Level 8.9 mg/dL (8.5-10.1) 9.2 mg/dL (8.5-10.1) Laboratory Tests Test 12/10/21 02:40 White Blood Count 4.9 x10^3/uL (4.0-11.0) Red Blood Count 4.77 x10^6/uL (3.50-5.40) Hemoglobin 14.3 g/dL (12.0-15.5) Hematocrit 44.0 % (36.0-47.0) Mean Corpuscular Volume 92 fL (79-100) Mean Corpuscular Hemoglobin 30 pg (25-35) Mean Corpuscular Hemoglobin Concent 33 g/dL (31-37) Red Cell Distribution Width 17.8 % (11.5-14.5) Platelet Count 221 x10^3/uL (140-400) Neutrophils (%) (Auto) 85 % (31-73) Lymphocytes (%) (Auto) 11 % (24-48) Monocytes (%) (Auto) 4 % (0-9) Eosinophils (%) (Auto) 0 % (0-3) Basophils (%) (Auto) 0 % (0-3) Neutrophils # (Auto) 4.2 x10^3/uL (1.8-7.7) Lymphocytes # (Auto) 0.6 x10^3/uL (1.0-4.8) Monocytes # (Auto) 0.2 x10^3/uL (0.0-1.1) Eosinophils # (Auto) 0.0 x10^3/uL (0.0-0.7) Basophils # (Auto) 0.0 x10^3/uL (0.0-0.2) Sodium Level 144 mmol/L (136-145) Potassium Level 4.8 mmol/L (3.5-5.1) Chloride Level 97 mmol/L (98-107) Carbon Dioxide Level > 45 mmol/L (21-32) Anion Gap (6-14) Blood Urea Nitrogen 19 mg/dL (7-20) Creatinine 0.8 mg/dL (0.6-1.0) Estimated GFR (Cockcroft-Gault) 73.7 Glucose Level 136 mg/dL (70-99) Calcium Level 9.2 mg/dL (8.5-10.1) Medications Active Scripts Medications Dose Route/Sig Max Daily Dose Days Date Category Budesonide-Formoterol 160-4.5 (Budesonide/Formoterol Fumarate) 10.2 Gm Hfa.aer.ad 2 Puff PO BID 12/07/21 Reported Effexor Xr (Venlafaxine Hcl) 150 Mg Cap.er.24h 300 Mg PO DAILY 05/31/15 Reported Hydrocodone-Apap 5-325 (Hydrocodone Bit/Acetaminophen) 1 Each Tablet 1 Tab PO TID PRN PRN 05/31/15 Reported Xanax (Alprazolam) 0.5 Mg Tablet 1 Tab PO TID PRN PRN 05/31/15 Reported Advair 250-50 Diskus (Fluticasone/Salmeterol) 1 Each Disk.w.dev 1 Puff IH BID 05/31/15 Reported Spiriva (Tiotropium [place]) 18 Mcg Cap.w.dev 1 Cap IH DAILY 05/31/15 Reported Impression . 1. Acute on chronic hypoxic and hypercapnic respiratory failure secondary to multifactorial etiologies including a combination of acute exacerbation of chronic obstructive pulmonary disease, acute bronchitis and acute on chronic cor pulmonale.--improving 2. Underlying suspected severe chronic obstructive pulmonary disease with chronic hypercapnia. In addition, she likely has component of obesity hypoventilation syndrome. 3. COVID-19 infection in October of this year. Recovered. Not on home oxygen. Some of the x-ray abnormalities could be from residual COVID pneumonia. 4. Underlying morbid obesity. Plan . Updated 12/10/2021 Continue supplemental oxygen currently on 3 L nasal cannula, wears home oxygen of 3 to 4 L, continue BiPAP at night Bronchodilators as needed occluding Pulmicort Change Levaquin to p.o., and complete full course DC IV Solu-Medrol, changed to Medrol Dosepak anticipation of discharge Educated on the importance of smoking cessation DVT/GI prophylaxis Discussed with RN Okay to discharge today from our standpoint, follow-up in the office on 01/20/2022 at 2:15 PM 1. The patient is off the BiPAP. Clinically, doing better. 2. We will follow on her ABGs today. 3. Smoking cessation counseling provided. 4. Continue DuoNebs. 5. Continue empiric antibiotic. 6. IV Solu-Medrol with gradual taper. 7. Continue Pulmicort. 8. Weight loss is strongly emphasized. 9. Diuresis. Likely discharge in the next 24 hours. LEE CASTRO MD Dec 10, 2021 10:22
[2021-12-10 11:00] VITALS: BP 165/89
--- NOTE | 2021-12-10 13:49 | NUR ---
SS following up with discharge planning. SS reviewed pt chart and discussed with pt RN. Pt is currently requiring oxygen at three liters nasal canula. Pt reporting today that she has home oxygen. Discharge order on the chart for home with self care.
[2021-12-11] MEDS ORDERED: predniSONE 10 MG TABLET PO SCH (09:00)
[2021-12-13] MEDS ORDERED: predniSONE 20 MG TABLET PO SCH (09:00)
[2021-12-15] MEDS ORDERED: predniSONE 10 MG TABLET PO SCH (09:00)
[2021-12-17] MEDS ORDERED: predniSONE 5 MG TABLET PO SCH (09:00)
== END 2021-12-10 14:45 | disposition home or self-care (01) | DRG 189 ==
LOC: 6 SOUTH 10:36
PROVIDERS: ADMIT Internal Medicine; ATTEND Internal Medicine
PROC: 5A09357 Assistance with Respiratory Ventilation, Less than 24 Consecutive Hours, Continuous Positive Airway Pressure (ICD-10-PCS; principal; 2021-12-07)
PROC: 5A09357 Assistance with Respiratory Ventilation, Less than 24 Consecutive Hours, Continuous Positive Airway Pressure (ICD-10-PCS; 2021-12-08)
PROC: 5A09357 Assistance with Respiratory Ventilation, Less than 24 Consecutive Hours, Continuous Positive Airway Pressure (ICD-10-PCS; 2021-12-09)
DX: J96.21 Acute and chronic respiratory failure with hypoxia (principal); E66.2 Morbid (severe) obesity with alveolar hypoventilation; J44.0 Chronic obstructive pulmonary disease with (acute) lower respiratory infection; J44.1 Chronic obstructive pulmonary disease with (acute) exacerbation; F17.210 Nicotine dependence, cigarettes, uncomplicated; F32.A Depression, unspecified; F41.9 Anxiety disorder, unspecified; J20.9 Acute bronchitis, unspecified; J96.22 Acute and chronic respiratory failure with hypercapnia; Z53.29 Procedure and treatment not carried out because of patient's decision for other reasons; Z68.37 Body mass index [BMI] 37.0-37.9, adult; Z82.5 Family history of asthma and other chronic lower respiratory diseases; Z86.16 Personal history of COVID-19; G89.29 Other chronic pain; Z88.0 Allergy status to penicillin; Z88.2 Allergy status to sulfonamides; Z88.8 Allergy status to other drugs, medicaments and biological substances
CPT/HCPCS: 36415; 36600; 80048; 80053; 82805; 85025; 94640; 94660; 94760; J1650; J1940; J1956; J2920; G0378; J7626

== ENCOUNTER 2021-12-11 20:49 | Inpatient (IN) | payer OTHER ==
[~2021-12-11] VITALS: Ht 170.2 cm; Wt 109.1 kg
[2021-12-11 20:00] VITALS: BP 135/69
[~2021-12-11 20:49] MED LIST changes: +ALBU2.5V8 IH; +BUDE10.26 PO; +LEVO500T9 PO; +METH4TAB2 PO
[2021-12-11 23:34] VITALS: BP 149/95
[2021-12-12 03:14] VITALS: BP 145/84
[2021-12-12] MEDS: methylPREDNISolone SOD SUCC PF 125 MG/2 ML VIAL. IV SCH ×3 (06:16→22:07)
[2021-12-12 07:00] VITALS: BP 171/84
[2021-12-12] MEDS ORDERED: IPRATRPIUM/ALBUTEROL 0.5/2.5MG 3 ML NEBU. NEB SCH (08:00)
--- NOTE | 2021-12-12 08:47 | PDOC1 ---
History and Physical Date of Admission Date of Admission DATE: 12/12/21 TIME: 08:42 Source Source: Chart review, Patient History of Present Illness History of Present Illness Ms. Lopez, is a 56-year-old female just DC here two days ago, then admit to [facility] for a day and transferred here. Admit there for shortness of breath and chest pain. . She had COVID-19 a couple of months ago. on admit there, ABG pH of 7.28, a pCO2 of 90, pO2 47, bicarbonate 43 and oxygen saturation was only 74%. She is DNR, just met Dr. Dean last week she is complaining of pain. Past Medical History Cardiovascular: HTN Pulmonary: COPD Musculoskeletal: low back pain Rheumatologic: No pertinent hx ENT: No pertinent hx Renal/: No pertinent hx Endocrine: No pertinent hx Family History Family History: Chronic Bronchitis, Other (COPD) Social History Smoke: 1 pack per day ALCOHOL: none Drugs: None Current Medications Current Medications Current Medications Methylprednisolone Sodium Succinate (SOLU-Medrol 125MG VIAL) 125 mg Q8HRS IV Last administered on 12/12/21at 06:16; Start 12/12/21 at 06:00 Albuterol/ Ipratropium (Duoneb) 3 ml RTQID NEB Last administered on 12/12/21at 07:58; Start 12/12/21 at 08:00 Levofloxacin/ Dextrose 100 ml @ 100 mls/hr Q24H IV ; Start 12/12/21 at 10:00 Active Scripts Active Proair Hfa Inhaler (Albuterol Sulfate) 8.5 Gm Hfa.aer.ad 2 Puff IH PRN Q4-6HRS PRN 21 Days Levofloxacin 500 Mg Tablet 1 Tab PO DAILY Medrol (Methylprednisolone) 4 Mg Tab.ds.pk 1 Pkg PO UD Reported Budesonide-Formoterol 160-4.5 (Budesonide/Formoterol Fumarate) 10.2 Gm Hfa.aer.ad 2 Puff PO BID Effexor Xr (Venlafaxine Hcl) 150 Mg Cap.er.24h 300 Mg PO DAILY Hydrocodone-Apap 5-325 (Hydrocodone Bit/Acetaminophen) 1 Each Tablet 1 Tab PO TID PRN PRN Xanax (Alprazolam) 0.5 Mg Tablet 1 Tab PO TID PRN PRN Advair 250-50 Diskus (Fluticasone/Salmeterol) 1 Each Disk.w.dev 1 Puff IH BID Spiriva (Tiotropium [place]) 18 Mcg Cap.w.dev 1 Cap IH DAILY Allergies Allergies: Coded Allergies: Sulfa (Sulfonamide Antibiotics) (Verified Allergy, Intermediate, 05/31/15) cephalexin (Verified Allergy, Intermediate, 05/31/15) penicillin (Verified Allergy, Intermediate, 05/31/15) promethazine (Verified Allergy, Intermediate, 05/31/15) ROS General: YES: Chills, Fatigue, Malaise; No: Night Sweats, Appetite, Other PSYCHOLOGICAL ROS: No: Anxiety, Behavioral Disorder, Concentration difficultie, Decreased libido, Depression, Disorientation, Hallucinations, Hostility, Irritablity, Memory difficulties, Mood Swings, Obsessive thoughts, Physical abuse, Sexual abuse, Sleep disturbances, Suicidal ideation, Other Eyes: No Blurry vision, No Decreased vision, No Double vision, No Dry eyes, No Excessive tearing, No Eye Pain, No Itchy Eyes, No Loss of vision, No Photophobia, No Scotomata, No Uses contacts, No Uses glasses, No Other HEENT: YES: [place]acaches Respiratory: YES: Cough, Shortness of breath, SOB with excertion, Sputum Changes; No: Hemoptysis, Orthopnea, Pleuritic Pain, Stridor, Tachypnea, Wheezing, O ther Cardiovascular: No Chest Pain, No Palpitations, No Orthopnea, No Paroxysmal Noc. Dyspnea, No Edema, No Lt Headedness, No Other Gastrointestinal: Yes Nausea; No Vomiting, No Abdominal Pain, No Diarrhea, No Constipation, No Melena, No Hematochezia, No Other Genitourinary: No Dysuria, No Frequency, No Incontinence, No Hematuria, No Retention, No Discharge, No Urgency, No Pain, No Flank Pain, No Other, No , No , No , No , No , No , No Musculoskeletal: No Gait Disturbance, No Joint Pain, No Joint Stiffness, No Joint Swelling, No Muscle Pain, No Muscular Weakness, No Pain In:, No Swelling In:, No Other Neurological: No Behavorial Changes, No Bowel/Bladder ControlChng, No Confusion, No Dizziness, No Gait Disturbance, No Headaches, No Impaired Coord/balance, No Memory Loss, No Numbness/Tingling, No Seizures, No Speech Problems, No Tremors, No Visual Changes, No Weakness, No Other Skin: No Dry Skin, No Eczema, No Hair Changes, No Lumps, No Mole Changes, No Mottling, No Nail Changes, No Pruritus, No Rash, No Skin Lesion Changes, No Other, No Acne Physical Exam Physical Exam tachypneic, without pallor, jaundice, cyanosis. General: Alert, Oriented X3, Cooperative, mild distress, moderate distress HEENT: Atraumatic, PERRLA Lungs: Other Heart: S1S2 Abdomen: Normal bowel sounds, Soft Extremities: No cyanosis, No edema Skin: No rashes, No breakdown Neuro: Normal speech, Sensation intact Psych/Mental Status: Mental status NL, Mood NL Vitals Vitals Vital Signs Date Time Temp Pulse Resp B/P (MAP) Pulse Ox O2 Delivery O2 Flow Rate FiO2 12/12/21 07:59 98 Nasal Cannula 4.0 12/12/21 07:00 98.0 64 18 171/84 (113) 98.0 VTE Prophylaxis Ordered VTE Prophylaxis Devices: No VTE Pharmacological Prophylaxi: Yes Assessment/Plan Assessment/Plan COPD with acute bronchitis acute on chroinc hypercarbic respiratory failure acute hypoxia chest pain tobacco use disorder anxiety, NOS ABx, nebs, steroids, PULM consult, nicotine patch, PRN pain meds DNR Justifications for Admission Other Justification KAREN DUKES MD Dec 12, 2021 08:47
[2021-12-12] MEDS ORDERED: [UNRECOGNIZED DRUG - OTHER] PO SCH (09:00)
[2021-12-12] MEDS ORDERED: BUDESONIDE PO SCH (09:00)
[2021-12-12] MEDS ORDERED: ALPRAZolam 0.5 MG TABLET PO PRN (09:00)
[2021-12-12] MEDS ORDERED: NON FORMULARY ITEM (Tiotropium Bromide (Spiriva) 1 CAP) IH SCH (09:00)
[2021-12-12] MEDS ORDERED: FORMOTEROL FUMARATE PO SCH (09:00)
[2021-12-12] MEDS: VENLAFAXINE 50 MG TABLET. PO SCH ×3 (09:17→22:07)
[2021-12-12] MEDS: oxyCODONE/APAP 5/325 1 TAB TABLET PO PRN ×2 (09:18→20:02)
[2021-12-12] MEDS: AZTREONAM IV Push 2 GM VIAL. IVP SCH ×2 (09:18→22:07)
[2021-12-12] MEDS ORDERED: VANCOMYCIN 2 GM in IV NORMAL SALINE 500ML BAG 500 ML IV ONE (10:00)
--- NOTE | 2021-12-12 10:46 | CONS ---
DATE OF CONSULTATION: 12/12/2021 PULMONARY CONSULTATION ATTENDING PHYSICIAN: Titus Kelly MD. REASON FOR CONSULTATION: Respiratory failure, COPD exacerbation. HISTORY OF PRESENT ILLNESS: The patient is a 56-year-old obese female with a BMI of 36 and suspected severe COPD with chronic hypercapnia. She was recently hospitalized on the with acute exacerbation of COPD and acute on chronic hypercapnic respiratory failure. The patient was treated with BiPAP initially and subsequently improved and was discharged on home oxygen. The patient has quit tobacco about a week now. She has smoked for 40 years. No history of deep vein thrombosis or pulmonary embolism. She states that she went home and then later, she started to have shortness of breath and was having severe wheezing. As a result, she was hospitalized for further treatment. She did have COVID infection in October of this year. The patient had a chest x-ray, which was reviewed by me. There were bilateral faint patchy interstitial infiltrates. She is still wheezing. She had been getting nebulizer treatments. No ABGs ordered during this admission. She is fully awake. PAST MEDICAL HISTORY: Suspected severe COPD with chronic hypercapnia. History of chronic pain, depression and anxiety. PAST SURGICAL HISTORY: No recent surgeries. ALLERGIES: SULFA, CEPHALEXIN, PENICILLIN, AND PROMETHAZINE. FAMILY HISTORY: COPD. SOCIAL HISTORY: Smoker, 1 pack per day for 40 years. MEDICATIONS: All reviewed as listed in the MRAD including DuoNebs q.i.d., budesonide. She is on vancomycin and also add aztreonam. REVIEW OF SYSTEMS: Twelve-point review of system obtained. Pertinent positives discussed in my present illness, otherwise noncontributory. All systems that were negative were reviewed as well. PHYSICAL EXAMINATION: VITAL SIGNS: Reviewed. Blood pressure on the high side 171 systolic. Pulse ox 96% on 4 liters, afebrile. NECK: Supple. LUNGS: With bilateral exploratory wheezes. CARDIOVASCULAR: With a regular rate. ABDOMEN: Soft, obese. EXTREMITIES: With trace pitting edema. LABORATORY DATA: Reviewed. ABGs were from the 7th. Chemistries were from the 7th as well. White cell count 4.9, hemoglobin 14.8 from the 9th and platelets are 221. IMPRESSION: 1. Acute on chronic hypoxic respiratory failure secondary to acute exacerbation of chronic obstructive pulmonary disease with diffuse bronchospasm. 2. Suspected severe underlying chronic obstructive pulmonary disease with chronic hypercapnia. She is now readmitted with another acute exacerbation of chronic obstructive pulmonary disease within 24-hour of discharge. 3. History of COVID-19 pneumonia in October of this year. 4. Bilateral patchy infiltrates could be residual from a recent COVID infection. Clinically, lacks symptoms of pneumonia. 5. Underlying obesity. 6. Component of cor pulmonale. RECOMMENDATIONS: 1. Discussed with the patient the importance of quitting tobacco. She is agreeable to not smoking again. 2. Continue present oxygen. Gradually wean down to keep saturation 92% and above. 3. Continue empiric antibiotics. 4. DuoNebs and Pulmicort nebs. 5. IV Solu-Medrol. 6. P.r.n. diuresis. 7. PFTs as an outpatient. 8. Discussed with RN. We will follow along with you. IRA[place] DR: Rangel TID: [id number]
[2021-12-12 10:54] LABS: BASO % 0 % (0-3); EOS % 0 % (0-3); HEMATOCRIT 47.8 % (36.0-47.0); HEMOGLOBIN 15.1 g/dL (12.0-15.5); LYMPH # 0.6 x10^3/uL (1.0-4.8); LYMPH % 7 % (24-48); MEAN CORPUSCULAR HEMOGLOBIN 30 pg (25-35); MEAN CORPUSCULAR HGB CONC 32 g/dL (31-37); MEAN CORPUSCULAR VOLUME 94 fL (79-100); MONO # 0.2 x10^3/uL (0.0-1.1); MONO % 3 % (0-9); NEUT # 7.3 x10^3/uL (1.8-7.7); NEUT % 90 % (31-73); PLATELET COUNT 216 x10^3/uL (140-400); RED BLOOD COUNT 5.09 x10^6/uL (3.50-5.40); RED CELL DISTRIBUTION WIDTH 18.1 % (11.5-14.5); WHITE BLOOD COUNT 8.1 x10^3/uL (4.0-11.0)
[2021-12-12 11:00] VITALS: BP 130/75
[2021-12-12 11:03] LABS: ALBUMIN 3.3 g/dL (3.4-5.0); ALBUMIN/GLOBULIN RATIO 0.9 (1.0-1.7); ALK PHOS 73 U/L (46-116); ALT (SGPT) 66 U/L (14-59); AST (SGOT) 53 U/L (15-37); BLOOD UREA NITROGEN 18 mg/dL (7-20); BUN/CREATININE RATIO 23 (6-20); CALCIUM 9.1 mg/dL (8.5-10.1); CARBON DIOXIDE 43 mmol/L (21-32); CHLORIDE 101 mmol/L (98-107); CREATININE 0.8 mg/dL (0.6-1.0); GFR 73.7; GLUCOSE 160 mg/dL (70-99); POTASSIUM 4.9 mmol/L (3.5-5.1); SODIUM 143 mmol/L (136-145); TOTAL BILIRUBIN 0.4 mg/dL (0.2-1.0); TOTAL PROTEIN 7.1 g/dL (6.4-8.2)
[2021-12-12] MEDS: IPRATRPIUM/ALBUTEROL 0.5/2.5MG 3 ML NEBU. NEB SCH ×3 (11:21→19:24)
[2021-12-12] MEDS: BUDESONIDE 0.5 MG/2 ML NEBU. NEB SCH ×2 (11:21→19:24)
[2021-12-12 15:00] VITALS: BP 122/60
--- NOTE | 2021-12-12 15:40 | NUR ---
SS following up with discharge planning. SS reviewed pt chart and discussed with pt RN. Pt is from home and is currently requiring oxygen at four liters nasal canula. Pulmonology following. Pt on IV Solu-Medrol and IV Aztrenam. SS received phone contact from Massiel at [employer], ; fax [phone], stating that pt has insurance approval for [employer] and potential oxygen if needed. Pt's RN notified. SS will continue to follow for discharge planning.
[2021-12-12] MEDS: VANCOMYCIN PER PHARMACY MC PRN (16:23)
--- NOTE | 2021-12-12 16:34 | NUR ---
Pharmacy Vancomycin Dosing Note S:Consulted to monitor and dose vancomycin started 12/12/21. O:KARISSA SALEH is a 56 year old F with Pneumonia Height: 5 feet, 7 inches Weight: 106.0 kg [place] Body Weight: 61.60 Adjusted Body Weight: 79.36 Dosing Weight: Actual Other Antibiotics: AZTREONAM LABS: Last BUN: 18 Last Creatinine: 0.8 Creatinine Clearance: 96 mL/min Last WBC: 8.1 Last Procalcitonin: Tmax (past 24 hours): 98.2 Microbiology: I/O: 120/2 VOIDS Drug Levels: Last level: on at Last dose given 12/12/21 at 0920 Vancomycin Dosing: Loading Dose: 2000 mg x1 Dosing Weight: Actual Target Trough: 15-20 A: Based on: weigh and renal function P: 1. Begin Vancomycin 1500 mg IV q12h 2. Follow up trough level 12/13 at 2030 3. Pharmacy will continue to monitor, follow and adjust therapy as needed. Deepali Valverde Selina, 12/12/21 [id number]
[2021-12-12 19:51] VITALS: BP 129/79
[2021-12-12] MEDS: VANCOMYCIN 1.5 GM in IV NORMAL SALINE 500ML BAG 500 ML IV SCH (19:59)
[2021-12-12] MEDS: ENOXAPARIN 40 MG/0.4 ML SYRINGE. SQ SCH (22:08)
[2021-12-12 23:31] VITALS: BP 139/68
[2021-12-13 03:20] VITALS: BP 142/94
[2021-12-13] MEDS: methylPREDNISolone SOD SUCC PF 125 MG/2 ML VIAL. IV SCH ×3 (05:31→21:57)
[2021-12-13] MEDS: AZTREONAM IV Push 2 GM VIAL. IVP SCH ×3 (05:31→21:57)
[2021-12-13] MEDS: oxyCODONE/APAP 5/325 1 TAB TABLET PO PRN (05:31)
--- NOTE | 2021-12-13 06:23 | PDOC ---
PULMONARY PROGRESS NOTES DATE: 12/13/21 TIME: 06:22 Subjective on 02 3 lpm sob better has coug not able to cough up sputum on home 02 3 lpm Vitals Vital Signs Date Time Temp Pulse Resp B/P (MAP) Pulse Ox O2 Delivery O2 Flow Rate FiO2 12/13/21 06:01 20 Nasal Cannula 3.0 12/13/21 03:20 97.9 60 142/94 (110) 91 97.9 ROS: No Nausea, No Chest Pain General: Alert, No acute distress HEENT: Other (nc at perr ) Lungs: Crackles Cardiovascular: S1, S2 Abdomen: Soft Neuro Exam: Alert Extremities: Other Skin: Warm Labs Laboratory Tests Test 12/12/21 10:25 White Blood Count 8.1 x10^3/uL (4.0-11.0) Red Blood Count 5.09 x10^6/uL (3.50-5.40) Hemoglobin 15.1 g/dL (12.0-15.5) Hematocrit 47.8 % (36.0-47.0) Mean Corpuscular Volume 94 fL (79-100) Mean Corpuscular Hemoglobin 30 pg (25-35) Mean Corpuscular Hemoglobin Concent 32 g/dL (31-37) Red Cell Distribution Width 18.1 % (11.5-14.5) Platelet Count 216 x10^3/uL (140-400) Neutrophils (%) (Auto) 90 % (31-73) Lymphocytes (%) (Auto) 7 % (24-48) Monocytes (%) (Auto) 3 % (0-9) Eosinophils (%) (Auto) 0 % (0-3) Basophils (%) (Auto) 0 % (0-3) Neutrophils # (Auto) 7.3 x10^3/uL (1.8-7.7) Lymphocytes # (Auto) 0.6 x10^3/uL (1.0-4.8) Monocytes # (Auto) 0.2 x10^3/uL (0.0-1.1) Eosinophils # (Auto) 0.0 x10^3/uL (0.0-0.7) Basophils # (Auto) 0.0 x10^3/uL (0.0-0.2) Sodium Level 143 mmol/L (136-145) Potassium Level 4.9 mmol/L (3.5-5.1) Chloride Level 101 mmol/L (98-107) Carbon Dioxide Level 43 mmol/L (21-32) Anion Gap (6-14) Blood Urea Nitrogen 18 mg/dL (7-20) Creatinine 0.8 mg/dL (0.6-1.0) Estimated GFR (Cockcroft-Gault) 73.7 BUN/Creatinine Ratio 23 (6-20) Glucose Level 160 mg/dL (70-99) Calcium Level 9.1 mg/dL (8.5-10.1) Total Bilirubin 0.4 mg/dL (0.2-1.0) Aspartate Amino Transf (AST/SGOT) 53 U/L (15-37) Alanine Aminotransferase (ALT/SGPT) 66 U/L (14-59) Alkaline Phosphatase 73 U/L (46-116) Total Protein 7.1 g/dL (6.4-8.2) Albumin 3.3 g/dL (3.4-5.0) Albumin/Globulin Ratio 0.9 (1.0-1.7) Laboratory Tests Test 12/12/21 10:25 White Blood Count 8.1 x10^3/uL (4.0-11.0) Red Blood Count 5.09 x10^6/uL (3.50-5.40) Hemoglobin 15.1 g/dL (12.0-15.5) Hematocrit 47.8 % (36.0-47.0) Mean Corpuscular Volume 94 fL (79-100) Mean Corpuscular Hemoglobin 30 pg (25-35) Mean Corpuscular Hemoglobin Concent 32 g/dL (31-37) Red Cell Distribution Width 18.1 % (11.5-14.5) Platelet Count 216 x10^3/uL (140-400) Neutrophils (%) (Auto) 90 % (31-73) Lymphocytes (%) (Auto) 7 % (24-48) Monocytes (%) (Auto) 3 % (0-9) Eosinophils (%) (Auto) 0 % (0-3) Basophils (%) (Auto) 0 % (0-3) Neutrophils # (Auto) 7.3 x10^3/uL (1.8-7.7) Lymphocytes # (Auto) 0.6 x10^3/uL (1.0-4.8) Monocytes # (Auto) 0.2 x10^3/uL (0.0-1.1) Eosinophils # (Auto) 0.0 x10^3/uL (0.0-0.7) Basophils # (Auto) 0.0 x10^3/uL (0.0-0.2) Sodium Level 143 mmol/L (136-145) Potassium Level 4.9 mmol/L (3.5-5.1) Chloride Level 101 mmol/L (98-107) Carbon Dioxide Level 43 mmol/L (21-32) Anion Gap (6-14) Blood Urea Nitrogen 18 mg/dL (7-20) Creatinine 0.8 mg/dL (0.6-1.0) Estimated GFR (Cockcroft-Gault) 73.7 BUN/Creatinine Ratio 23 (6-20) Glucose Level 160 mg/dL (70-99) Calcium Level 9.1 mg/dL (8.5-10.1) Total Bilirubin 0.4 mg/dL (0.2-1.0) Aspartate Amino Transf (AST/SGOT) 53 U/L (15-37) Alanine Aminotransferase (ALT/SGPT) 66 U/L (14-59) Alkaline Phosphatase 73 U/L (46-116) Total Protein 7.1 g/dL (6.4-8.2) Albumin 3.3 g/dL (3.4-5.0) Albumin/Globulin Ratio 0.9 (1.0-1.7) Medications Active Scripts Medications Dose Route/Sig Max Daily Dose Days Date Category Proair Hfa Inhaler (Albuterol Sulfate) 8.5 Gm Hfa.aer.ad 2 Puff IH PRN Q4-6HRS PRN 21 12/10/21 Rx Levofloxacin 500 Mg Tablet 1 Tab PO DAILY 12/10/21 Rx Budesonide-Formoterol 160-4.5 (Budesonide/Formoterol Fumarate) 10.2 Gm Hfa.aer.ad 2 Puff PO BID 12/07/21 Reported Effexor Xr (Venlafaxine Hcl) 150 Mg Cap.er.24h 300 Mg PO DAILY 05/31/15 Reported Hydrocodone-Apap 5-325 (Hydrocodone Bit/Acetaminophen) 1 Each Tablet 1 Tab PO TID PRN PRN 05/31/15 Reported Xanax (Alprazolam) 0.5 Mg Tablet 1 Tab PO TID PRN PRN 05/31/15 Reported Advair 250-50 Diskus (Fluticasone/Salmeterol) 1 Each Disk.w.dev 1 Puff IH BID 05/31/15 Reported Spiriva (Tiotropium [place]) 18 Mcg Cap.w.dev 1 Cap IH DAILY 05/31/15 Reported Impression . IMPRESSION: 1. Acute on chronic hypoxic respiratory failure secondary to acute exacerbation of chronic obstructive pulmonary disease with diffuse bronchospasm. 2. Suspected severe underlying chronic obstructive pulmonary disease with chronic hypercapnia. She is now readmitted with another acute exacerbation of chronic obstructive pulmonary disease within 24-hour of discharge. 3. History of COVID-19 pneumonia in October of this year. 4. Bilateral patchy infiltrates could be residual from a recent COVID infection. Clinically, lacks symptoms of pneumonia. 5. Underlying obesity. yaw 6. Component of cor pulmonale. Plan . RECOMMENDATIONS: 1. advised to quit smoking for ever 2. 02 titration to keep sat 90%. on home 02 3 lpm 3. Continue empiric antibiotics. 4. DuoNebs and Pulmicort nebs. 5. change Solu-Medrol to 80 q 8hrs 6. P.r.n. diuresis. 7. PFTs as an outpatient. 8. add mucinex 9. lose wt psg as outpt Discussed with RN and patient . We will follow along with you. CLARA MEDRANO MD Dec 13, 2021 06:23
[2021-12-13 07:00] VITALS: BP 145/76
[2021-12-13 08:28] LABS: CREATININE 0.7 mg/dL (0.6-1.0); GFR 85.9; POTASSIUM 5.6 mmol/L (3.5-5.1)
[2021-12-13] MEDS: BUDESONIDE 0.5 MG/2 ML NEBU. NEB SCH ×2 (08:34→19:58)
[2021-12-13] MEDS: IPRATRPIUM/ALBUTEROL 0.5/2.5MG 3 ML NEBU. NEB SCH ×4 (08:34→19:58)
[2021-12-13] MEDS: VENLAFAXINE 50 MG TABLET. PO SCH ×3 (09:00→20:47)
[2021-12-13] MEDS: VANCOMYCIN 1.5 GM in IV NORMAL SALINE 500ML BAG 500 ML IV SCH ×2 (09:14→20:46)
[2021-12-13 11:00] VITALS: BP 127/85
[2021-12-13 15:00] VITALS: BP 135/69
--- NOTE | 2021-12-13 16:59 | PDOC ---
[employer] PROGRESS NOTE Date of Service DOS: DATE: 12/13/21 TIME: 16:59 Chief Complaint Chief Complaint COPD with acute bronchitis acute on chroinc hypercarbic respiratory failure acute hypoxia chest pain tobacco use disorder anxiety, NOS History of Present Illness History of Present Illness cont the broad IV ABx, PCN allergy noted nebs, steroids, PULM consult, nicotine patch, PRN pain meds DNR Vitals/I&O Vitals/I&O: Vital Signs Date Time Temp Pulse Resp B/P (MAP) Pulse Ox O2 Delivery O2 Flow Rate FiO2 12/13/21 16:08 94 Nasal Cannula 4.0 12/13/21 15:00 98.2 88 16 135/69 (91) 98.2 I & O 12/12/21 12/12/21 12/13/21 15:00 23:00 07:00 Intake Total 940 ml 800 ml 250 ml Output Total 400 ml Balance 940 ml 800 ml -150 ml Physical Exam General: Alert, Oriented X3, Cooperative, mild distress, moderate distress Lungs: Crackles Abdomen: Normal bowel sounds, Soft Extremities: No cyanosis, No edema Skin: No rashes, No breakdown Labs Labs: Laboratory Tests Test 12/13/21 07:35 Sodium Level 138 mmol/L (136-145) Potassium Level 5.6 mmol/L (3.5-5.1) Chloride Level 98 mmol/L (98-107) Carbon Dioxide Level 40 mmol/L (21-32) Anion Gap 0 (6-14) Blood Urea Nitrogen 20 mg/dL (7-20) Creatinine 0.7 mg/dL (0.6-1.0) Estimated GFR (Cockcroft-Gault) 85.9 Glucose Level 126 mg/dL (70-99) Calcium Level 9.0 mg/dL (8.5-10.1) Comment Review of Relevant I have reviewed the following items eliane (where applicable) has been applied. Medications: Current Medications Medications (Trade) Dose Ordered Sig/Lobito Route PRN Reason Start Time Stop Time Status Last Admin Dose Admin Enoxaparin Sodium (Lovenox 40mg Syringe) 40 mg Q24H SQ 12/12/21 21:00 12/12/21 22:08 Vancomycin HCl 1.5 gm/Sodium Chloride 500 ml @ 250 mls/hr Q12H IV 12/12/21 21:00 12/13/21 09:14 Methylprednisolone Sodium Succinate (SOLU-Medrol 125MG VIAL) 80 mg Q8HRS IV 12/13/21 14:00 12/13/21 13:59 Guaifenesin (Mucinex) 600 mg BID PO 12/13/21 09:00 12/13/21 09:15 Justifications for Admission Other Justification KAREN DUKES MD Dec 13, 2021 16:59
[2021-12-13 19:00] VITALS: BP 142/78
[2021-12-13 20:46] LABS: VANC TR 13.9 mcg/mL (10.0-20.0)
[2021-12-13] MEDS: LACTOBACILLUS RHAMNOSUS GG 1 CAPSULE. PO SCH (20:46)
[2021-12-13] MEDS: ENOXAPARIN 40 MG/0.4 ML SYRINGE. SQ SCH (20:48)
[2021-12-13] MEDS: VANCOMYCIN PER PHARMACY MC PRN (22:12)
--- NOTE | 2021-12-13 22:12 | NUR ---
Pharmacy Vancomycin Dosing Note S:Consulted to monitor and dose vancomycin started 12/12/21. O:KARISSA SALEH is a 56 year old F with Pneumonia BRONCHITITIS . Height: 5 feet, 7 inches Weight: 109.1 kg [place] Body Weight: 61.60 Adjusted Body Weight: 80.60 Dosing Weight: Actual Other Antibiotics: AZTREONAM LABS: Last BUN: 18 Last Creatinine: 0.8 Creatinine Clearance: 96 mL/min Last WBC: 8.1 Last Procalcitonin: Tmax (past 24 hours): 98.2 Microbiology: I/O: 120/2 VOIDS Drug Levels: Last Trough level: 13.9 on 12/13/21 at 2030 Last dose given 12/12/21 at 0920 Vancomycin Dosing: Loading Dose: 2000 mg x1 Dosing Weight: Actual Target Trough: 10-20 A: Based on: TROUGH AND CONDITION P: 1. Continue Vancomycin 1500 mg IV q12h 2. Follow up level IF NEEDED 3. Pharmacy will continue to monitor, follow and adjust therapy as needed. HEMALATHA SHANE RPH, 12/13/212 Signed: 12/13/21 at 2213 by HEMALATHA SHANE RPH PHA
[2021-12-13 23:00] VITALS: BP 143/56
[2021-12-14] MEDS: oxyCODONE/APAP 5/325 1 TAB TABLET PO PRN ×3 (00:13→22:44)
[2021-12-14 03:00] VITALS: BP 159/84
[2021-12-14] MEDS: methylPREDNISolone SOD SUCC PF 125 MG/2 ML VIAL. IV SCH (06:32)
[2021-12-14] MEDS: AZTREONAM IV Push 2 GM VIAL. IVP SCH ×3 (06:33→23:36)
--- NOTE | 2021-12-14 06:37 | PDOC ---
PULMONARY PROGRESS NOTES DATE: 12/14/21 TIME: 06:36 Subjective on 02 3 lpm feels better sob couth better on home 02 3 lpm Vitals Vital Signs Date Time Temp Pulse Resp B/P (MAP) Pulse Ox O2 Delivery O2 Flow Rate FiO2 12/14/21 03:00 98.1 84 20 159/84 (109) 95 Nasal Cannula 4.0 98.1 ROS: No Nausea, No Chest Pain General: Alert, No acute distress HEENT: Other (nc at perrl ) Lungs: Crackles Cardiovascular: S1, S2 Abdomen: Soft Neuro Exam: Alert Extremities: Other Skin: Warm Labs Laboratory Tests Test 12/12/21 10:25 12/13/21 07:35 12/13/21 20:25 White Blood Count 8.1 x10^3/uL (4.0-11.0) Red Blood Count 5.09 x10^6/uL (3.50-5.40) Hemoglobin 15.1 g/dL (12.0-15.5) Hematocrit 47.8 % (36.0-47.0) Mean Corpuscular Volume 94 fL (79-100) Mean Corpuscular Hemoglobin 30 pg (25-35) Mean Corpuscular Hemoglobin Concent 32 g/dL (31-37) Red Cell Distribution Width 18.1 % (11.5-14.5) Platelet Count 216 x10^3/uL (140-400) Neutrophils (%) (Auto) 90 % (31-73) Lymphocytes (%) (Auto) 7 % (24-48) Monocytes (%) (Auto) 3 % (0-9) Eosinophils (%) (Auto) 0 % (0-3) Basophils (%) (Auto) 0 % (0-3) Neutrophils # (Auto) 7.3 x10^3/uL (1.8-7.7) Lymphocytes # (Auto) 0.6 x10^3/uL (1.0-4.8) Monocytes # (Auto) 0.2 x10^3/uL (0.0-1.1) Eosinophils # (Auto) 0.0 x10^3/uL (0.0-0.7) Basophils # (Auto) 0.0 x10^3/uL (0.0-0.2) Sodium Level 143 mmol/L (136-145) 138 mmol/L (136-145) Potassium Level 4.9 mmol/L (3.5-5.1) 5.6 mmol/L (3.5-5.1) Chloride Level 101 mmol/L (98-107) 98 mmol/L (98-107) Carbon Dioxide Level 43 mmol/L (21-32) 40 mmol/L (21-32) Anion Gap (6-14) 0 (6-14) Blood Urea Nitrogen 18 mg/dL (7-20) 20 mg/dL (7-20) Creatinine 0.8 mg/dL (0.6-1.0) 0.7 mg/dL (0.6-1.0) Estimated GFR (Cockcroft-Gault) 73.7 85.9 BUN/Creatinine Ratio 23 (6-20) Glucose Level 160 mg/dL (70-99) 126 mg/dL (70-99) Calcium Level 9.1 mg/dL (8.5-10.1) 9.0 mg/dL (8.5-10.1) Total Bilirubin 0.4 mg/dL (0.2-1.0) Aspartate Amino Transf (AST/SGOT) 53 U/L (15-37) Alanine Aminotransferase (ALT/SGPT) 66 U/L (14-59) Alkaline Phosphatase 73 U/L (46-116) Total Protein 7.1 g/dL (6.4-8.2) Albumin 3.3 g/dL (3.4-5.0) Albumin/Globulin Ratio 0.9 (1.0-1.7) Vancomycin Level Trough 13.9 mcg/mL (10.0-20.0) Vancomycin Last Dose Date 12/13/21 Vancomycin Last Dose Time 0900 Laboratory Tests Test 12/13/21 07:35 12/13/21 20:25 Sodium Level 138 mmol/L (136-145) Potassium Level 5.6 mmol/L (3.5-5.1) Chloride Level 98 mmol/L (98-107) Carbon Dioxide Level 40 mmol/L (21-32) Anion Gap 0 (6-14) Blood Urea Nitrogen 20 mg/dL (7-20) Creatinine 0.7 mg/dL (0.6-1.0) Estimated GFR (Cockcroft-Gault) 85.9 Glucose Level 126 mg/dL (70-99) Calcium Level 9.0 mg/dL (8.5-10.1) Vancomycin Level Trough 13.9 mcg/mL (10.0-20.0) Vancomycin Last Dose Date 12/13/21 Vancomycin Last Dose Time 0900 Medications Active Scripts Medications Dose Route/Sig Max Daily Dose Days Date Category Proair Hfa Inhaler (Albuterol Sulfate) 8.5 Gm Hfa.aer.ad 2 Puff IH PRN Q4-6HRS PRN 21 12/10/21 Rx Levofloxacin 500 Mg Tablet 1 Tab PO DAILY 12/10/21 Rx Budesonide-Formoterol 160-4.5 (Budesonide/Formoterol Fumarate) 10.2 Gm Hfa.aer.ad 2 Puff PO BID 12/07/21 Reported Effexor Xr (Venlafaxine Hcl) 150 Mg Cap.er.24h 300 Mg PO DAILY 05/31/15 Reported Hydrocodone-Apap 5-325 (Hydrocodone Bit/Acetaminophen) 1 Each Tablet 1 Tab PO TID PRN PRN 05/31/15 Reported Xanax (Alprazolam) 0.5 Mg Tablet 1 Tab PO TID PRN PRN 05/31/15 Reported Advair 250-50 Diskus (Fluticasone/Salmeterol) 1 Each Disk.w.dev 1 Puff IH BID 05/31/15 Reported Spiriva (Tiotropium [place]) 18 Mcg Cap.w.dev 1 Cap IH DAILY 05/31/15 Reported Impression . IMPRESSION: 1. Acute on chronic hypoxic respiratory failure secondary to acute exacerbation of chronic obstructive pulmonary disease with diffuse bronchospasm. 2. Suspected severe underlying chronic obstructive pulmonary disease with chronic hypercapnia. She is now readmitted with another acute exacerbation of chronic obstructive pulmonary disease within 24-hour of discharge. 3. History of COVID-19 pneumonia in October of this year. 4. Bilateral patchy infiltrates could be residual from a recent COVID infection. Clinically, lacks symptoms of pneumonia. 5. Underlying obesity. yaw 6. Component of cor pulmonale. Plan . 12/14 1. advised to quit smoking for ever 2. 02 titration to keep sat 90%. on home 02 3 lpm 3. change Solu-Medrol to 40 q 8hrs 4. DuoNebs and Pulmicort nebs. 5. Continue empiric antibiotics. 6. P.r.n. diuresis. 7. PFTs as an outpatient. 8. mucinex 9. lose wt psg as outpt Discussed with RN and patient . We will follow along with you. RECOMMENDATIONS: 1. advised to quit smoking for ever 2. 02 titration to keep sat 90%. on home 02 3 lpm 3. Continue empiric antibiotics. 4. DuoNebs and Pulmicort nebs. 5. change Solu-Medrol to 80 q 8hrs 6. P.r.n. diuresis. 7. PFTs as an outpatient. 8. add mucinex 9. lose wt psg as outpt Discussed with RN and patient . We will follow along with you. CLARA MEDRANO MD Dec 14, 2021 06:36
[2021-12-14 07:00] VITALS: BP 140/72
[2021-12-14] MEDS: IPRATRPIUM/ALBUTEROL 0.5/2.5MG 3 ML NEBU. NEB SCH ×4 (07:41→20:56)
[2021-12-14] MEDS: BUDESONIDE 0.5 MG/2 ML NEBU. NEB SCH ×2 (07:41→20:56)
[2021-12-14] MEDS: VANCOMYCIN 1.5 GM in IV NORMAL SALINE 500ML BAG 500 ML IV SCH ×2 (08:20→20:56)
[2021-12-14] MEDS: VENLAFAXINE 50 MG TABLET. PO SCH ×3 (08:21→20:38)
[2021-12-14] MEDS: LACTOBACILLUS RHAMNOSUS GG 1 CAPSULE. PO SCH ×2 (08:21→20:36)
[2021-12-14 08:56] LABS: CALCIUM 8.8 mg/dL (8.5-10.1); CREATININE 0.7 mg/dL (0.6-1.0); GFR 85.9; POTASSIUM 4.7 mmol/L (3.5-5.1)
[2021-12-14 10:48] VITALS: BP 127/88
--- NOTE | 2021-12-14 12:44 | PDOC ---
[employer] PROGRESS NOTE Date of Service DOS: DATE: 12/14/21 TIME: 12:43 Chief Complaint Chief Complaint COPD with acute bronchitis acute on chroinc hypercarbic respiratory failure acute hypoxia chest pain tobacco use disorder anxiety, NOS History of Present Illness History of Present Illness 12/14, a little manic today from the steroids, eating a lot having pain in right side from priro surgery, has known scar tissue breathign better, may be able to DC in AM cont the broad IV ABx, PCN allergy noted nebs, steroids, PULM consult, nicotine patch, PRN pain meds DNR Vitals/I&O Vitals/I&O: Vital Signs Date Time Temp Pulse Resp B/P (MAP) Pulse Ox O2 Delivery O2 Flow Rate FiO2 12/14/21 11:54 98 Nasal Cannula 4.0 12/14/21 10:48 96.7 90 18 127/88 (101) 96.7 I & O 12/13/21 12/13/21 12/14/21 15:00 23:00 07:00 Intake Total 480 ml 1230 ml 500 ml Output Total 400 ml Balance 80 ml 1230 ml 500 ml Physical Exam General: Alert, Oriented X3, Cooperative, mild distress, moderate distress Heart: Regular rate, No murmurs, Other Lungs: Crackles (better, now rales, volume imrpoved, ), Other Abdomen: Normal bowel sounds, Soft Extremities: No cyanosis, No edema Skin: No rashes, No breakdown, No significant lesion Labs Labs: Laboratory Tests Test 12/13/21 20:25 12/14/21 07:15 Vancomycin Level Trough 13.9 mcg/mL (10.0-20.0) Vancomycin Last Dose Date 12/13/21 Vancomycin Last Dose Time 0900 Sodium Level 142 mmol/L (136-145) Potassium Level 4.7 mmol/L (3.5-5.1) Chloride Level 100 mmol/L (98-107) Carbon Dioxide Level 36 mmol/L (21-32) Anion Gap 6 (6-14) Blood Urea Nitrogen 20 mg/dL (7-20) Creatinine 0.7 mg/dL (0.6-1.0) Estimated GFR (Cockcroft-Gault) 85.9 Glucose Level 108 mg/dL (70-99) Calcium Level 8.8 mg/dL (8.5-10.1) Comment Review of Relevant I have reviewed the following items eliane (where applicable) has been applied. Medications: Current Medications Medications (Trade) Dose Ordered Sig/Lobito Route PRN Reason Start Time Stop Time Status Last Admin Dose Admin Vancomycin HCl (Vancomycin Trough Level) 1 each 1X ONCE MC 12/13/21 20:30 12/13/21 20:31 DC 12/13/21 20:30 Methylprednisolone Sodium Succinate (SOLU-Medrol 125MG VIAL) 80 mg Q8HRS IV 12/13/21 14:00 12/14/21 06:37 DC 12/14/21 06:32 Lactobacillus Rhamnosus (Culturelle) 1 cap BID PO 12/13/21 21:00 12/14/21 08:21 Justifications for Admission Other Justification KAREN DUKES MD Dec 14, 2021 12:44
[2021-12-14] MEDS: methylPREDNISolone SOD SUCC PF 40 MG/ML VIAL. IV SCH ×2 (14:18→23:37)
[2021-12-14 15:00] VITALS: BP 110/51
[2021-12-14] MEDS ORDERED: diphenhydrAMINE HCL 25 MG CAPSULE PO PRN (16:00)
[2021-12-14 19:00] VITALS: BP 141/69
[2021-12-14] MEDS: ENOXAPARIN 40 MG/0.4 ML SYRINGE. SQ SCH (20:39)
[2021-12-14] MEDS ORDERED: diphenhydrAMINE HCL 25 MG CAPSULE PO SCH (21:00)
[2021-12-14 23:54] VITALS: BP 137/93
[2021-12-15 03:00] VITALS: BP 129/69
[2021-12-15] MEDS: AZTREONAM IV Push 2 GM VIAL. IVP SCH ×2 (06:06→14:00)
[2021-12-15] MEDS: methylPREDNISolone SOD SUCC PF 40 MG/ML VIAL. IV SCH ×2 (06:07→14:00)
[2021-12-15 07:00] VITALS: BP 158/79
[2021-12-15 08:28] LABS: CALCIUM 8.9 mg/dL (8.5-10.1); CREATININE 0.6 mg/dL (0.6-1.0); GFR 102.7
[2021-12-15] MEDS: BUDESONIDE 0.5 MG/2 ML NEBU. NEB SCH (09:05)
[2021-12-15] MEDS: IPRATRPIUM/ALBUTEROL 0.5/2.5MG 3 ML NEBU. NEB SCH ×2 (09:05→13:23)
[2021-12-15] MEDS: LACTOBACILLUS RHAMNOSUS GG 1 CAPSULE. PO SCH (09:08)
[2021-12-15] MEDS: VANCOMYCIN 1.5 GM in IV NORMAL SALINE 500ML BAG 500 ML IV SCH (09:09)
[2021-12-15] MEDS: VENLAFAXINE 50 MG TABLET. PO SCH ×2 (09:57→14:08)
[2021-12-15] MEDS: oxyCODONE/APAP 5/325 1 TAB TABLET PO PRN (10:17)
--- NOTE | 2021-12-15 10:26 | NUR ---
SW following. Discussed with RN, pt from home, 3L (uses oxygen at home), clear liquid diet. RN advised no SW needs and anticipates possible discharge home today. SW will continue to follow.
--- NOTE | 2021-12-15 10:32 | PDOC ---
PULMONARY PROGRESS NOTES DATE: 12/15/21 TIME: 10:31 Subjective on 02 3 lpm feels better sob better on home 02 3 lpm Vitals Vital Signs Date Time Temp Pulse Resp B/P (MAP) Pulse Ox O2 Delivery O2 Flow Rate FiO2 12/15/21 09:05 93 Nasal Cannula 3.0 12/15/21 07:00 97.5 72 18 158/79 (105) 97.5 ROS: No Nausea, No Chest Pain General: Alert, No acute distress HEENT: Other (nc at perrl ) Lungs: Wheezing (Resolved.) Cardiovascular: S1, S2 Abdomen: Soft Neuro Exam: Alert Extremities: Other Skin: Warm Labs Laboratory Tests Test 12/13/21 20:25 12/14/21 07:15 12/15/21 07:18 Vancomycin Level Trough 13.9 mcg/mL (10.0-20.0) Vancomycin Last Dose Date 12/13/21 Vancomycin Last Dose Time 0900 Sodium Level 142 mmol/L (136-145) 140 mmol/L (136-145) Potassium Level 4.7 mmol/L (3.5-5.1) 5.0 mmol/L (3.5-5.1) Chloride Level 100 mmol/L (98-107) 101 mmol/L (98-107) Carbon Dioxide Level 36 mmol/L (21-32) 34 mmol/L (21-32) Anion Gap 6 (6-14) 5 (6-14) Blood Urea Nitrogen 20 mg/dL (7-20) 20 mg/dL (7-20) Creatinine 0.7 mg/dL (0.6-1.0) 0.6 mg/dL (0.6-1.0) Estimated GFR (Cockcroft-Gault) 85.9 102.7 Glucose Level 108 mg/dL (70-99) 101 mg/dL (70-99) Calcium Level 8.8 mg/dL (8.5-10.1) 8.9 mg/dL (8.5-10.1) Laboratory Tests Test 12/15/21 07:18 Sodium Level 140 mmol/L (136-145) Potassium Level 5.0 mmol/L (3.5-5.1) Chloride Level 101 mmol/L (98-107) Carbon Dioxide Level 34 mmol/L (21-32) Anion Gap 5 (6-14) Blood Urea Nitrogen 20 mg/dL (7-20) Creatinine 0.6 mg/dL (0.6-1.0) Estimated GFR (Cockcroft-Gault) 102.7 Glucose Level 101 mg/dL (70-99) Calcium Level 8.9 mg/dL (8.5-10.1) Medications Active Scripts Medications Dose Route/Sig Max Daily Dose Days Date Category Proair Hfa Inhaler (Albuterol Sulfate) 8.5 Gm Hfa.aer.ad 2 Puff IH PRN Q4-6HRS PRN 21 12/10/21 Rx Levofloxacin 500 Mg Tablet 1 Tab PO DAILY 12/10/21 Rx Budesonide-Formoterol 160-4.5 (Budesonide/Formoterol Fumarate) 10.2 Gm Hfa.aer.ad 2 Puff PO BID 12/07/21 Reported Effexor Xr (Venlafaxine Hcl) 150 Mg Cap.er.24h 300 Mg PO DAILY 05/31/15 Reported Hydrocodone-Apap 5-325 (Hydrocodone Bit/Acetaminophen) 1 Each Tablet 1 Tab PO TID PRN PRN 05/31/15 Reported Xanax (Alprazolam) 0.5 Mg Tablet 1 Tab PO TID PRN PRN 05/31/15 Reported Advair 250-50 Diskus (Fluticasone/Salmeterol) 1 Each Disk.w.dev 1 Puff IH BID 05/31/15 Reported Spiriva (Tiotropium [place]) 18 Mcg Cap.w.dev 1 Cap IH DAILY 05/31/15 Reported Impression . IMPRESSION: 1. Acute on chronic hypoxic respiratory failure secondary to acute exacerbation of chronic obstructive pulmonary disease with diffuse bronchospasm. Clinically improved. 2. Suspected severe underlying chronic obstructive pulmonary disease with chronic hypercapnia. She is now readmitted with another acute exacerbation of chronic obstructive pulmonary disease within 24-hour of discharge. 3. History of COVID-19 pneumonia in October of this year. 4. Bilateral patchy infiltrates could be residual from a recent COVID infection. Clinically, lacks symptoms of pneumonia. 5. Underlying obesity. yaw 6. Component of cor pulmonale. Plan . 12/15 1. advised to quit smoking for ever 2. 02 titration to keep sat 90%. on home 02 3 lpm 3. IV steroids can be switched to p.o. 4. DuoNebs and Pulmicort nebs. 5. Continue empiric antibiotics. 6. P.r.n. diuresis. 7. PFTs as an outpatient. 8. mucinex 9. lose wt psg as outpt Discussed with RN. Possible discharge today 12/14 1. advised to quit smoking for ever 2. 02 titration to keep sat 90%. on home 02 3 lpm 3. change Solu-Medrol to 40 q 8hrs 4. DuoNebs and Pulmicort nebs. 5. Continue empiric antibiotics. 6. P.r.n. diuresis. 7. PFTs as an outpatient. 8. mucinex 9. lose wt psg as outpt Discussed with RN and patient . We will follow along with you. RECOMMENDATIONS: 1. advised to quit smoking for ever 2. 02 titration to keep sat 90%. on home 02 3 lpm 3. Continue empiric antibiotics. 4. DuoNebs and Pulmicort nebs. 5. change Solu-Medrol to 80 q 8hrs 6. P.r.n. diuresis. 7. PFTs as an outpatient. 8. add mucinex 9. lose wt psg as outpt Discussed with RN and patient . We will follow along with you. LEE CASTRO MD Dec 15, 2021 10:32
[2021-12-15 11:00] VITALS: BP 123/60
[2021-12-15] MEDS ORDERED: METH4TAB2 PO (11:18)
--- NOTE | 2021-12-15 11:19 | SNU/HH DC ---
DISCHARGE WITH HOME HEALTH DISCHARGE INFORMATION: Condition on Discharge: Stable CODE STATUS: Code Status: Full HOME HEALTH: Face to Face: I certify this patient is under my care and that I, or a nurse practitioner or physician's certified medical assistant working with me, had a face to face encounter that meets the physician face to face encounter requirements with this patient on []. Medical Complications: COPD Residential For: Assess Cardiopulm Status RN For Eval/Treatment: Yes Physical Therapy For: Evalulation/Treatment Occupational Therapy For: Evaluation/Treatment Home Health Aide For: Self-care PRODUCT SAFETY COORDINATOR For: Community Resources Pt Meets Homebound Status: Unsteady balance w/ amb, POST DISCHARGE ORDERS: Activity Instructions for Disc: Activity as tolerated DIET AFTER DISCHARGE: Cardiac CHECKS AFTER DISCHARGE: Checks after discharge: Check blood press - daily, Check your Temp as needed TREATMENT/EQUIPMENT ORDERS: Adaptive Equipment Issued: None CERTIFICATION STATEMENT: Certification Statement: Certification Statement: Based on the above finding, I certify that this patient is confined to the home and needs intermittent residential care, physical therapy and/or speech therapy, or continues to need occupational therapy.~ This patient is under my care, and I have initiated the establishment of the plan of care.~ This patient will be followed by myself or a community physician who will periodically review the plan of care. Home Meds Active Scripts Methylprednisolone (MEDROL) 4 Mg Tab.ds.pk, 1 PKG PO UD for ., #1 PKG Prov:TOBI RODRIGUEZ K III DO 12/15/21 Albuterol Sulfate (PROAIR HFA INHALER) 8.5 Gm Hfa.aer.ad, 2 PUFF IH PRN Q4-6HRS PRN for wheezing for 21 Days, #1 INHALER 0 Refills Prov:CHU RODRIGUEZL K III DO 12/10/21 Levofloxacin (LEVOFLOXACIN) 500 Mg Tablet, 1 TAB PO DAILY for ., #7 TAB Prov:CHU RODRIGUEZL K III DO 12/10/21 Reported Medications Budesonide/Formoterol Fumarate (Budesonide-Formoterol 160-4.5) 10.2 Gm Hfa.aer.ad, 2 PUFF PO BID for 12/07/21 Venlafaxine Hcl (EFFEXOR XR) 150 Mg Cap.er.24h, 300 MG PO DAILY, CAP.SR 05/31/15 Hydrocodone Bit/Acetaminophen (HYDROCODONE-APAP 5-325 ) 1 Each Tablet, 1 TAB PO TID PRN PRN for PAIN, #90 TAB 05/31/15 Alprazolam (XANAX) 0.5 Mg Tablet, 1 TAB PO TID PRN PRN for ANXIETY / AGITATION, #90 TAB 05/31/15 Fluticasone/Salmeterol (ADVAIR 250-50 DISKUS) 1 Each Disk.w.dev, 1 PUFF IH BID, #3 INHALER 3 Refills 05/31/15 Tiotropium [place] (SPIRIVA) 18 Mcg Cap.w.dev, 1 CAP IH DAILY, #30 CAP 3 Refills 05/31/15 TOBI RODRIGUEZ III DO Dec 15, 2021 11:19
--- NOTE | 2021-12-15 15:07 | NUR ---
Pt left unit at approx 1505 by wheelchair via cab. Pt's IV removed without complication, VSS. Discharge paperwork discussed and sent with pt.
--- NOTE | 2021-12-16 13:08 | DS ---
DATE OF DISCHARGE: 12/15/2021 ADMISSION DIAGNOSIS: Chronic obstructive pulmonary disease. DISCHARGE DIAGNOSES: Resolving respiratory failure secondary to chronic obstructive pulmonary disease, noncompliance. HOSPITAL COURSE: The patient is a pleasant 56-year-old female who continues to smoke. Once again, she presented with COPD exacerbation. We gave her steroids, breathing treatments, oxygen, antibiotics. Yesterday, I saw and examined her. She was up at the bedside, doing well, wanted to go home, will be discharged home. DISPOSITION: Home. ACTIVITY: As tolerated. DIET: Low sodium. DISCHARGE MEDICATIONS: Please see the MRAD. TOTAL TIME: 33 minutes. YELITZA/HARDY DR: YELITZA/lissett TID: [id number]
== END 2021-12-15 15:08 | disposition home or self-care (01) | DRG 189 ==
LOC: 5 NORTH 20:49
PROVIDERS: ADMIT Student in an Organized Health Care Education/Training Program; ATTEND Student in an Organized Health Care Education/Training Program
DX: J96.21 Acute and chronic respiratory failure with hypoxia (principal); J44.1 Chronic obstructive pulmonary disease with (acute) exacerbation; J44.0 Chronic obstructive pulmonary disease with (acute) lower respiratory infection; J96.22 Acute and chronic respiratory failure with hypercapnia; Z88.0 Allergy status to penicillin; Z88.2 Allergy status to sulfonamides; Z88.8 Allergy status to other drugs, medicaments and biological substances; E66.9 Obesity, unspecified; F17.210 Nicotine dependence, cigarettes, uncomplicated; F41.9 Anxiety disorder, unspecified; G47.33 Obstructive sleep apnea (adult) (pediatric); I10 Essential (primary) hypertension; I27.81 Cor pulmonale (chronic); J20.9 Acute bronchitis, unspecified; Z66 Do not resuscitate; Z68.36 Body mass index [BMI] 36.0-36.9, adult; Z82.5 Family history of asthma and other chronic lower respiratory diseases; Z86.16 Personal history of COVID-19; Z87.01 Personal history of pneumonia (recurrent); Z91.19 Patient's noncompliance with other medical treatment and regimen; F32.A Depression, unspecified; G89.29 Other chronic pain
CPT/HCPCS: 36415; 80048; 80053; 80202; 85025; 94640; 94660; 94760; J1650; J2920; J2930; J3370; J3490; J7040; G0378; J7626; Q0163